=== PATIENT | male | born 1970 | race Caucasian/White ===

== ENCOUNTER → 2020-07-12 10:53 | Outpatient (CLI) | payer OTHER, SELFPAY ==
[2020-07-12 11:54] LABS: Alanine Aminotransferase 27 IU/L (<50); Albumin 4.7 g/dL (3.5-5.0); Albumin Globulin Ratio 1.6 (1.0-2.8); Alkaline Phosphatase 69 U/L (38-126); Aspartate Aminotransferase 26 IU/L (17-59); BUN Creatinine Ratio 20.3 (6-22); Bilirubin Total 0.4 mg/dL (0.2-1.3); Blood Urea Nitrogen 14 mg/dL (9-20); Calcium 9.2 mg/dL (8.4-10.2); Carbon Dioxide 31 mmol/L (22-32); Chloride 104 mmol/L (98-107); Cholesterol 142 mg/dL (140-199); Estimated Glomerular Filt Rate > 60.0 mL/min (>60); Glucose 102 mg/dL (70-100); HDL Cholesterol 40 mg/dL (40-60); HEMOLYSIS < 15 (0-50); LDL Cholesterol Calculated 78 mg/dL (<100); Potassium 4.5 mmol/L (3.4-5.1); Sodium 140 mmol/L (137-145); Total Protein 7.7 g/dL (6.3-8.2); Triglycerides 121 mg/dL (35-150)
== END ==
PROVIDERS: PCP Family Medicine; Referring Provider Family Medicine; Visit Provider Family Medicine
DX: E78.5 Hyperlipidemia, unspecified (principal); Z82.49 Family history of ischemic heart disease and other diseases of the circulatory system
CPT/HCPCS: 36415; 80053; 80061

== ENCOUNTER → 2020-09-30 09:30 | Outpatient (CLI) | payer OTHER, SELFPAY ==
[2020-09-30 10:21] LABS: COVID19 -Nasal RAPID Negative (Negative)
== END ==
PROVIDERS: PCP Family Medicine; Visit Provider Surgery
DX: Z20.822 Contact with and (suspected) exposure to COVID-19 (principal)
CPT/HCPCS: 87635; C9803

== ENCOUNTER 2020-10-01 06:31 | Day surgery (SDC) | payer OTHER, SELFPAY ==
[2020-10-01] VITALS (7 sets, daily range): BP systolic 112–132; BP diastolic 71–83; PULSE 63–74; RESP 12–17; TEMP 35.6–36.6; O2SAT 94–98; BMI 29.9
--- NOTE | 2020-10-01 | PATH_ITS ---
[facility] Accession Number: [id number] . 01 Material submitted: . back - UPPER BACK . 01 Clinical history: . MELANOMA UPPER BACK, SHORT STITCH SUPERIOR LONG STITCH LATERAL SDC . 01 Diagnosis: Upper Back, Excision: Residual atypical compound melanocytic proliferation, margins clear; final diagnosis pending outside expert consultation. Scar, consistent with prior biopsy site. [facility] 10/08/2020 1541 Local . 01 Comment: The residual dermal component seems to lack maturation, however, p16 expression is mosaic. Melan-A immunohistochemical stain performed highlights the residual lesion with positive staining. The nearest epidermal resection margin is located at approximately 9.5 mm from the lesion. . 01 Electronically signed: . Louann Bruno MD, Dermatopathologist NPI- [id number] . 01 Gross description: . The specimen is received in formalin, labeled melanoma upper back and consists of a 3.2 x 1.8 cm garcía skin ellipse excised to a depth of 3.1 cm. The specimen is oriented with a short suture designated superior and a long suture designated lateral. The skin surface displays a 0.5 x 0.5 cm garcía pink area. The specimen is inked as follows: superior lateral green, inferior black, and superior medial yellow. The specimen is serially sectioned from medial to lateral and entirely submitted. . A1: medial and lateral tips. A2-A9: central cross-sections. ([id number]) /MRV 10/08/20201942 Local . 01 Pathologist provided ICD-10: C43.9 . 01 CPT . 346851, A92561, I57258 Performed at: [address] [facility], [place], [place] [id number] MD Andreas Canela MD Phone: [phone]
[2020-10-01] MEDS: LACTATED RINGERS 1,000 ML 100 ML IV (07:05)
--- NOTE | 2020-10-01 07:36 | PM.PREOP ---
Pre-operative Note Interval Note History & Physical reviewed/Exam performed by Physician: Yes Changes to H&P: No
[2020-10-01] MEDS: CEFAZOLIN 2 GM/100 ML FROZ.PIGGY IV (07:52)
--- NOTE | 2020-10-01 08:14 | SUR.OPER ---
Prone on padded OR bed, head in foam head support, gel chest rolls, gel pad under knees, pillow under lower legs, toes free of pressure, arms secured on padded arm boards at <90 degrees abduction. Safety belt at thigh.
[2020-10-01] MEDS: BUPIVACAINE 0.25% (PF) VIAL 30 ML INJ (08:17)
--- NOTE | 2020-10-01 09:06 | PM.OP.1 ---
Operative Date/Time/Diagnoses Date of procedure: 10/01/20 Time of procedure: 09:06 Pre-op diagnosis: melanoma Post-op diagnosis: same Procedure & Clinicians Procedure: Wide local excision of melanoma from back Same procedure as scheduled: Yes Indications: shave biopsy of nevus demonstrates melanoma in situ the depth was uncertain here for wide local excision. Surgeon: Azael Mcnally Anesthesia Type: General Operative Notes Findings: 1 cm margins circumferentially, short stitch superior long stitch lateral Specimen(s): other (Melanoma) Procedure in detail: Patient was brought to the operating room and he was intubated and then placed prone appropriately padded. Bilateral lower extremity compression devices were applied. He received 2 g of Ancef prior to skin incision. He is prepped and draped in sterile fashion. Time-out was performed. 0.25% bupivacaine was infiltrated into the skin. There was a remaining less than 1 cm wound where the melanoma had been previously shaved on the upper back right of midline. 1 cm margins from the periphery of the lesion in all directions were marked. An elliptical incision was then made through the skin. The subcutaneous tissue was divided using electrocautery very. The lesion was then excised off of the fascia and passed off the field labeled melanoma. Short stitch superior long stitch lateral saldana the specimen. Hemostasis was achieved. The wound was then closed in layers using Vicryl suture the skin closed with interrupted nylon. A dressing with Xeroform Telfa and Tegaderm was then placed over the wound. Patient emerged from anesthesia was extubated and transferred to recovery room in stable condition. Complications: none Post-operative Condition: stable Disposition: same day surgery
== END 2020-10-01 09:40 | disposition home or self-care (01) ==
PROVIDERS: PCP Family Medicine; Referring Provider Surgery; Visit Provider Surgery
PROC: (CPT 11601; principal; 2020-10-01 07:45)
DX: C43.9 Malignant melanoma of skin, unspecified (principal); I10 Essential (primary) hypertension
CPT/HCPCS: 11601; 12031; J0690; J1100; J2250; J2405; J2704; J3010

== ENCOUNTER → 2020-12-24 07:25 | Outpatient (CLI) | payer OTHER, SELFPAY ==
--- NOTE | 2020-12-24 07:26 | DI.RAD.S_ITS ---
PROCEDURE: FL UPPER GI SERIES INDICATIONS: dysphagia COMPARISON: None. 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 No suspicious abdominal calcifications. Visualized solid organ contours appear normal. Bony structures appear unremarkable. Esophagus: Esophageal mucosa is normal on air-contrast views. On single-contrast views, there is decreased esophageal peristalsis. There is delayed esophageal clearance. No strictures, extrinsic mass effects, or diverticula. No hiatal hernia . Spontaneous gastroesophageal reflux to the lower 3rd of the esophagus. Stomach: The stomach is normally distensible, with normal rugal fold thickness. No mucosal masses or ulcers. Pylorus and duodenal bulb appear normal in morphology. Duodenal noted particularly is incidentally noted. IMPRESSION: Esophageal dysmotility. Spontaneous gastroesophageal reflux to the lower 3rd of the esophagus. Incidentally noted duodenal diverticulum. Dictated by: Mahamed Michael M.D. on 12/24/2020 at 13:25 Approved by: Mahamed Michael M.D. on 12/24/2020 at 13:27
== END ==
PROVIDERS: PCP Family Medicine; Referring Provider Registered Nurse; Visit Provider Registered Nurse
DX: R13.10 Dysphagia, unspecified (principal); K22.4 Dyskinesia of esophagus; K21.9 Gastro-esophageal reflux disease without esophagitis; K57.10 Diverticulosis of small intestine without perforation or abscess without bleeding
CPT/HCPCS: 74240

== ENCOUNTER → 2021-09-12 08:24 | Outpatient (CLI) | payer OTHER, SELFPAY ==
[2021-09-12 09:55] LABS: Hemoglobin A1C% w Est Avg Glu 5.3 % (4.0-6.0)
[2021-09-12 09:58] LABS: Alanine Aminotransferase 29 IU/L (<50); Albumin 4.5 g/dL (3.5-5.0); Albumin Globulin Ratio 1.6 (1.0-2.8); Alkaline Phosphatase 67 U/L (38-126); Aspartate Aminotransferase 25 IU/L (17-59); BUN Creatinine Ratio 20.2 (6-22); Bilirubin Total 0.9 mg/dL (0.2-1.3); Blood Urea Nitrogen 17 mg/dL (9-20); Calcium 9.4 mg/dL (8.4-10.2); Carbon Dioxide 25 mmol/L (22-32); Chloride 104 mmol/L (98-107); Estimated Glomerular Filt Rate > 60.0 mL/min (>60); Globulin 2.8 g/dL (1.7-4.1); Glucose 108 mg/dL (70-100); HEMOLYSIS < 15 (0-50); Potassium 4.6 mmol/L (3.4-5.1); Sodium 137 mmol/L (137-145); Total Protein 7.3 g/dL (6.3-8.2)
[2021-09-12 09:59] LABS: Add Manual Diff / Slide Review NO; Basophils Absolute Auto 0 /uL (0-100); Basophils Percent Auto 0.3 % (0-2); Eosinophils Absolute Auto 100 /uL (0-450); Eosinophils Percent Auto 1.6 % (2-4); Hematocrit 40.6 % (41-53); Hemoglobin 14.3 g/dL (13.5-17.5); Lymphocytes Absolute Auto 1700 /uL (1100-4500); Lymphocytes Percent Auto 26.3 % (25-40); Mean Corpuscular HGB Conc 35.3 % (30-36); Mean Corpuscular Hemoglobin 29.9 PG (26-34); Mean Corpuscular Volume 84.8 fL (80-100); Monocytes Absolute Auto 700 /uL (0-900); Monocytes Percent Auto 11.4 % (3-14); Neutrophils Absolute Auto 3800 /uL (1500-7000); Neutrophils Percent Auto 60.4 % (50-75); Platelet Count 226 X10^3/uL (150-400); Red Blood Cell Count 4.78 X10^6/uL (4.5-5.9); White Blood Cell Count 6.3 X10^3/uL (4.5-11.0)
== END ==
PROVIDERS: PCP Family Medicine; Referring Provider Family Medicine; Visit Provider Family Medicine
DX: Z00.00 Encounter for general adult medical examination without abnormal findings (principal)
CPT/HCPCS: 36415; 80053; 83036; 85025

== ENCOUNTER → 2022-02-02 16:17 | Outpatient (CLI) | payer OTHER, SELFPAY ==
--- NOTE | 2022-02-02 16:18 | DI.RAD.S_ITS ---
PROCEDURE: XR FOOT LT MIN 3V INDICATIONS: eval L foot pain x 1.5 months, no trauma TECHNIQUE: 3 views of the foot were acquired. COMPARISON: None. FINDINGS: Bones: No fractures or dislocations. Mild interphalangeal joint osteoarthritic changes are seen with joint space narrowing and subchondral sclerosis. No suspicious bony lesions. Well-defined plantar calcaneal enthesophyte is seen. Soft tissues: No tibiotalar joint effusion. Achilles tendon appears normal. IMPRESSION: Mild forefoot joint osteoarthritis. No fracture or dislocation. Well-defined calcaneal enthesophyte. Dictated by: Genaro Castellanos M.D. on 02/02/2022 at 16:48 Approved by: Genaro Castellanos M.D. on 02/02/2022 at 16:52
== END ==
PROVIDERS: PCP Family Medicine; Referring Provider Registered Nurse Diabetes Educator; Visit Provider Registered Nurse Diabetes Educator
DX: M19.072 Primary osteoarthritis, left ankle and foot (principal); M77.32 Calcaneal spur, left foot; M79.672 Pain in left foot
CPT/HCPCS: 73630

== ENCOUNTER → 2022-07-03 10:30 | Outpatient (CLI) | payer BC, SELFPAY ==
[2022-07-03 12:11] LABS: Add Manual Diff / Slide Review NO; Basophils Absolute Auto 0 /uL (0-100); Basophils Percent Auto 0.6 % (0-2); Eosinophils Absolute Auto 100 /uL (0-450); Eosinophils Percent Auto 1.7 % (2-4); Hematocrit 42.2 % (41-53); Hemoglobin 14.9 g/dL (13.5-17.5); Lymphocytes Absolute Auto 1600 /uL (1100-4500); Lymphocytes Percent Auto 25.3 % (25-40); Mean Corpuscular HGB Conc 35.4 % (30-36); Mean Corpuscular Volume 84.8 fL (80-100); Monocytes Absolute Auto 600 /uL (0-900); Monocytes Percent Auto 9.2 % (3-14); Neutrophils Absolute Auto 4100 /uL (1500-7000); Neutrophils Percent Auto 63.2 % (50-75); Platelet Count 238 X10^3/uL (150-400); Red Blood Cell Count 4.98 X10^6/uL (4.5-5.9); Red Cell Distribution Width 12.8 % (11.6-14.8); White Blood Cell Count 6.5 X10^3/uL (4.5-11.0)
[2022-07-03 12:19] LABS: Alanine Aminotransferase 34 IU/L (<50); Albumin 4.8 g/dL (3.5-5.0); Albumin Globulin Ratio 1.5 (1.0-2.8); Alkaline Phosphatase 79 U/L (38-126); Aspartate Aminotransferase 26 IU/L (17-59); BUN Creatinine Ratio 19.2 (6-22); Bilirubin Total 0.7 mg/dL (0.2-1.3); Blood Urea Nitrogen 14 mg/dL (9-20); Calcium 9.3 mg/dL (8.4-10.2); Carbon Dioxide 28 mmol/L (22-32); Chloride 97 mmol/L (98-107); Cholesterol 181 mg/dL (140-199); Estimated Glomerular Filt Rate > 60 mL/min (>60); Globulin 3.1 g/dL (1.7-4.1); Glucose 95 mg/dL (70-100); HDL Cholesterol 51 mg/dL (40-60); HEMOLYSIS < 15 (0-50); LDL Cholesterol Calculated 93 mg/dL (<100); Potassium 4.6 mmol/L (3.4-5.1); Sodium 138 mmol/L (137-145); Total Protein 7.9 g/dL (6.3-8.2); Triglycerides 183 mg/dL (35-150)
[2022-07-03 12:51] LABS: Prostate Specific Antigen 0.736 ng/mL (0.10-4.00)
== END ==
PROVIDERS: PCP Family Medicine; Referring Provider Family Medicine; Visit Provider Family Medicine
DX: C43.9 Malignant melanoma of skin, unspecified (principal); E78.5 Hyperlipidemia, unspecified; I10 Essential (primary) hypertension; Z00.00 Encounter for general adult medical examination without abnormal findings
CPT/HCPCS: 36415; 80053; 80061; 84153; 85025

== ENCOUNTER 2023-02-21 10:59 | Emergency (ER) | payer BC, SELFPAY ==
[2023-02-21 11:04] VITALS: PULSE 89; O2SAT 97
[2023-02-21 11:13] VITALS: BP 137/82; PULSE 89; RESP 16; TEMP 36.7; O2SAT 97; BMI 30.4
--- NOTE | 2023-02-21 11:13 | ED.GENADULT ---
HPI - General Adult General Chief complaint: Abdominal Pain Stated complaint: STOMACH CRAMPS/FEVER Time Seen by Provider: 02/21/23 11:01 History of Present Illness HPI narrative: 52yoM with PMH HTN presents from home by private vehicle for generalized abdominal cramping and cold sweats. Symptoms began in the middle of the night last night, improved with Tylenol. Patient states that he had something similar happen to him 3 weeks ago when he was traveling in [place]. At that time patient attributed it to eating strange foods such as raw horse meat. He experience symptoms for 6 days and they resolved. Reports colonoscopy 1 year ago, there were polyps that were removed and patient was told to return in 3 years for another colonoscopy. Denies nausea or vomiting. Related Data Previous Rx's Medication Instructions Recorded lisinopril 20 mg tablet 20 mg PO BEDTIME #90 tabs 07/14/22 lisinopril 20 1 tab PO DAILY #90 tabs 07/14/22 mg-hydrochlorothiazide 12.5 mg tablet simvastatin 20 mg tablet See Rx Instructions .Route 07/14/22 .COMPLEX #90 tabs dicyclomine 20 mg tablet 20 mg PO TID #30 tabs 02/21/23 Allergies Allergy/AdvReac Type Severity Reaction Status Date / Time No Known Drug Allergies Allergy Verified 07/03/22 09:33 Review of Systems Review of Systems Narrative: CONSTITUTIONAL-reports: Fever, subjective, chills Denies: fatigue HEENT- Denies: sore throat, nosebleed, vision changes RESPIRATORY- Denies: shortness of breath, cough, wheezing CARDIAC- Denies: chest pain, edema, orthopnea GI-reports: Abdominal cramping Denies: nausea, vomiting, constipation, diarrhea - Denies: frequency, dysuria, hematuria, flank pain MSK- Denies: extremity pain, extremity swelling, joint pain, joint swelling SKIN- Denies: rash, itching, burn, swelling NEUROLOGICAL- Denies: headache, numbness, weakness, dizziness PSYCHIATRIC- Denies: anxiety, depression, suicidal ideation, homicidal ideation Patient History Medical History Dysphagia Family history of [place] (myocardial infarction) Hyperlipidemia Hypertension Melanoma in situ Nevus Well adult exam Surgical History H/O hernia repair Family History Father Hypertension Social History marital status: household members: spouse occupational status: employed Smoking Status: Never smoker alcohol intake: never substance use type: does not use Smoking Status: Never smoker Substance Use Type: does not use Exam Initial Vital Signs Initial Vital Signs: Vital Signs Pulse Rate 89 02/21/23 11:04 Pulse Oximetry 97 02/21/23 11:04 Const: Well-nourished, Well-developed, appears stated age Eyes: PERRL, EOMI, conjunctiva normal ENT: Atraumatic, dentition normal, mucous membranes moist Cardiac: regular rate, regular rhythm RESP: unlabored, clear bilaterally, no wheezing GI: Atraumatic, soft, nontender, nondistended, no rebound, no guarding MSK: Atraumatic, full range of motion, pulses equal Skin: Warm, Dry, intact, no rashes Neuro: AO x3, CN II-XII grossly intact, moves all extremities Psych: affect normal, mood normal, not suicidal, not homicidal Course Course Course Narrative: Well-appearing patient with abdominal cramping, chills, subjective fever. Patient is currently afebrile, however he did take Tylenol several hours ago. Abdomen is soft and there is absolutely no reproducible tenderness to light or deep palpation, negative Barker's sign. Will obtain laboratory work, at this time no indication for CT imaging. Orders Ordered: Discontinued Medications Sodium Chloride (Normal Saline 0.9%) 500 mls @ 1,000 mls/hr IV BOLUS ONE Stop: 02/21/23 11:39 Last Infusion: 02/21/23 12:27 Dose: 0 mls/hr Documented By: Infusion: 02/21/23 11:43 Dose: 1,000 mls/hr Documented By: Infusion: 02/21/23 11:22 Dose: 0 mls/hr Documented By: Admin: 02/21/23 11:22 Dose: 1,000 mls/hr Documented By: BS Reevaluation(s) Reevaluation #1: Laboratory work is significant for mild leukocytosis of uncertain significance. CMP is significant for mild increase in bilirubin, however other liver enzymes are within normal. Repeat abdominal exam is soft, again there is no reproducible tenderness to either light or deep palpation. Patient states he feels better after receiving IV fluids and states that he thinks he may have a recurrence of whatever affected him in [place]. I discussed the results of all labs with the patient, I do not know the cause for his symptoms at this time. I explained that he did have mild leukocytosis, but no obvious source. Patient will be discharged on Bentyl to see if it helps with the cramping. I recommended that patient return for repeat evaluation if he does not experience improvement in the next 24-48 hours. ED return precautions discussed at bedside. Patient expressed understanding of the plan and is in agreement at this time. All questions answered at the time of discharge. Vital Signs Vital signs: Vital Signs - 8 hr 02/21/23 11:13 02/21/23 11:04 02/21/23 11:30 Temperature 98.1 F Pulse Rate 89 89 77 Respiratory Rate 16 Blood Pressure 137/82 Pulse Oximetry 97 97 97 Oxygen Delivery Method Room Air 02/21/23 12:00 02/21/23 12:50 Temperature 98.4 F Pulse Rate 78 Respiratory Rate Blood Pressure Pulse Oximetry 97 Oxygen Delivery Method Room Air Medical Decision Making Lab Data 02/21/23 11:35 02/21/23 11:35 Labs: Lab Results 02/21/23 02/21/23 02/21/23 Range/Units 11:25 11:35 11:35 WBC 14.3 H (4.5-11.0) X10^3/uL RBC 4.73 (4.5-5.9) X10^6/uL Hgb 13.7 (13.5-17.5) g/dL Hct 39.7 L (41-53) % MCV 83.9 (80-100) fL MCH 29.0 (26-34) PG MCHC 34.6 (30-36) % RDW 12.7 (11.6-14.8) % Plt Count 250 (150-400) X10^3/uL Neut % (Auto) 90.6 H (50-75) % Lymph % (Auto) 2.8 L (25-40) % [place] % (Auto) 6.0 (3-14) % Eos % (Auto) 0.1 L (2-4) % Baso % (Auto) 0.5 (0-2) % Neut # (Auto) 18277 H (6994-0425) /uL Lymph # (Auto) 400 L (0285-6139) /uL [place] # (Auto) 900 (0-900) /uL Eos # (Auto) 0 (0-450) /uL Baso # (Auto) 100 (0-100) /uL Sodium 134 L (137-145) mmol/L Potassium 4.2 (3.4-5.1) mmol/L Chloride 101 (98-107) mmol/L Carbon Dioxide 25 (22-32) mmol/L BUN 15 (9-20) mg/dL Creatinine 0.77 (0.66-1.25) mg/dL Estimated GFR > 60 (>60) mL/min BUN/Creatinine Ratio 19.5 (6-22) Glucose 115 H (70-100) mg/dL Calcium 9.1 (8.4-10.2) mg/dL Total Bilirubin 1.4 H (0.2-1.3) mg/dL AST 26 (17-59) IU/L ALT 33 (<50) IU/L Alkaline Phosphatase 99 (38-126) U/L Total Protein 7.5 (6.3-8.2) g/dL Albumin 4.2 (3.5-5.0) g/dL Globulin 3.3 (1.7-4.1) g/dL Albumin/Globulin Ratio 1.3 (1.0-2.8) Lipase 80 (23-300) U/L Urine Color Urine Appearance Urine pH (4.5-8.0) Ur Specific Mccarley (1.000-1.035) Urine Protein (Negative) Urine Glucose (UA) (Negative) g/dL Urine Ketones (NEGATIVE) Urine Occult Blood (Negative) Urine Nitrate (Negative) Urine Bilirubin (NEGATIVE) Urine Urobilinogen (0.2) E.U./dL Ur Leukocyte Esterase (NEGATIVE) Urine RBC (0-5/HPF) Urine WBC (0-5/HPF) Ur Squamous Epith Cells (0-5/HPF) Urine Bacteria (None) Urine Mucus (Negative) Ur Culture Indicated? Chlamy pneumoniae PCR Not detected (Not Detect) Adenovirus (PCR) Not detected (Not Detect) B. pertussis DNA (PCR) Not detected (Not Detecte) B.parapertussis DNA PCR Not detected (Not Detecte) Coronavirus OC43 (PCR) Not detected (Not Detect) Coronavirus HKU1 (PCR) Not detected (Not Detect) Coronavirus 229E (PCR) Not detected (Not Detect) SARS-CoV-2 (PCR) Not detected (Not Detecte) Coronavirus NL63 (PCR) Not detected (Not Detect) Human Metapneumovir PCR Not detected (Not Detect) Influenza Type A (PCR) Not detected (Not Detect) Influenza Type B (PCR) Not detected (Not Detect) M. pneumoniae (PCR) Not detected (Not Detect) Parainfluenza 1 (PCR) Not detected (Not Detect) Parainfluenza 2 (PCR) Not detected (Not Detect) Parainfluenza 3 (PCR) Not detected (Not Detect) Parainfluenza 4 (PCR) Not detected (Not Detect) RSV (PCR) Not detected (Not Detect) Entero/Rhino (PCR) Not detected (Not Detect) 02/21/23 Range/Units 12:15 WBC (4.5-11.0) X10^3/uL RBC (4.5-5.9) X10^6/uL Hgb (13.5-17.5) g/dL Hct (41-53) % MCV (80-100) fL MCH (26-34) PG MCHC (30-36) % RDW (11.6-14.8) % Plt Count (150-400) X10^3/uL Neut % (Auto) (50-75) % Lymph % (Auto) (25-40) % [place] % (Auto) (3-14) % Eos % (Auto) (2-4) % Baso % (Auto) (0-2) % Neut # (Auto) (3120-6715) /uL Lymph # (Auto) (9480-4447) /uL [place] # (Auto) (0-900) /uL Eos # (Auto) (0-450) /uL Baso # (Auto) (0-100) /uL Sodium (137-145) mmol/L Potassium (3.4-5.1) mmol/L Chloride (98-107) mmol/L Carbon Dioxide (22-32) mmol/L BUN (9-20) mg/dL Creatinine (0.66-1.25) mg/dL Estimated GFR (>60) mL/min BUN/Creatinine Ratio (6-22) Glucose (70-100) mg/dL Calcium (8.4-10.2) mg/dL Total Bilirubin (0.2-1.3) mg/dL AST (17-59) IU/L ALT (<50) IU/L Alkaline Phosphatase (38-126) U/L Total Protein (6.3-8.2) g/dL Albumin (3.5-5.0) g/dL Globulin (1.7-4.1) g/dL Albumin/Globulin Ratio (1.0-2.8) Lipase (23-300) U/L Urine Color Yellow Urine Appearance Clear Urine pH 5.5 (4.5-8.0) Ur Specific M[place]arley 1.020 (1.000-1.035) Urine Protein Negative (Negative) Urine Glucose (UA) Negative (Negative) g/dL Urine Ketones Negative (NEGATIVE) Urine Occult Blood Negative (Negative) Urine Nitrate Negative (Negative) Urine Bilirubin Negative (NEGATIVE) Urine Urobilinogen 1.0 (0.2) E.U./dL Ur Leukocyte Esterase Negative (NEGATIVE) Urine RBC 0-1/hpf (0-5/HPF) Urine WBC 0-1/hpf (0-5/HPF) Ur Squamous Epith Cells 0-1 /hpf (0-5/HPF) Urine Bacteria None seen (None) Urine Mucus 1+ H (Negative) Ur Culture Indicated? Cult not indicated Chlamy pneumoniae PCR (Not Detect) Adenovirus (PCR) (Not Detect) B. pertussis DNA (PCR) (Not Detecte) B.parapertussis DNA PCR (Not Detecte) Coronavirus OC43 (PCR) (Not Detect) Coronavirus HKU1 (PCR) (Not Detect) Coronavirus 229E (PCR) (Not Detect) SARS-CoV-2 (PCR) (Not Detecte) Coronavirus NL63 (PCR) (Not Detect) Human Metapneumovir PCR (Not Detect) Influenza Type A (PCR) (Not Detect) Influenza Type B (PCR) (Not Detect) M. pneumoniae (PCR) (Not Detect) Parainfluenza 1 (PCR) (Not Detect) Parainfluenza 2 (PCR) (Not Detect) Parainfluenza 3 (PCR) (Not Detect) Parainfluenza 4 (PCR) (Not Detect) RSV (PCR) (Not Detect) Entero/Rhino (PCR) (Not Detect) Discharge Plan Departure Patient Disposition: Home Clinical Impression: Abdominal cramping Instructions: DI for Dyspepsia Prescriptions: New dicyclomine 20 mg tablet 20 mg PO TID Qty: 30 0RF No Action lisinopril 20 mg tablet 20 mg PO BEDTIME Qty: 90 3RF lisinopril-hydrochlorothiazide 20-12.5 mg tablet 1 tab PO DAILY Qty: 90 3RF simvastatin 20 mg tablet See Rx Instructions .ROUTE .COMPLEX Qty: 90 3RF Dose Instruction: TAKE 1 TABLET BY MOUTH DAILY Rx Instructions: TAKE 1 TABLET BY MOUTH DAILY Referrals: Kavin Benítez, [Primary Care Provider] - Stand Alone Forms: Patient Portal/API
[2023-02-21] MEDS: SODIUM CHLORIDE 0.9% 500 ML 1000 ML IV (11:22)
[2023-02-21 11:30] VITALS: PULSE 77; O2SAT 97
[2023-02-21 11:48] LABS: Add Manual Diff / Slide Review NO; Basophils Absolute Auto 100 /uL (0-100); Basophils Percent Auto 0.5 % (0-2); Eosinophils Absolute Auto 0 /uL (0-450); Eosinophils Percent Auto 0.1 % (2-4); Hematocrit 39.7 % (41-53); Hemoglobin 13.7 g/dL (13.5-17.5); Lymphocytes Absolute Auto 400 /uL (1100-4500); Lymphocytes Percent Auto 2.8 % (25-40); Mean Corpuscular HGB Conc 34.6 % (30-36); Mean Corpuscular Volume 83.9 fL (80-100); Monocytes Absolute Auto 900 /uL (0-900); Neutrophils Absolute Auto 13000 /uL (1500-7000); Neutrophils Percent Auto 90.6 % (50-75); Platelet Count 250 X10^3/uL (150-400); Red Blood Cell Count 4.73 X10^6/uL (4.5-5.9); Red Cell Distribution Width 12.7 % (11.6-14.8); White Blood Cell Count 14.3 X10^3/uL (4.5-11.0)
[2023-02-21 12:00] VITALS: PULSE 78; O2SAT 97
[2023-02-21 12:11] LABS: Alanine Aminotransferase 33 IU/L (<50); Albumin 4.2 g/dL (3.5-5.0); Albumin Globulin Ratio 1.3 (1.0-2.8); Alkaline Phosphatase 99 U/L (38-126); Aspartate Aminotransferase 26 IU/L (17-59); BUN Creatinine Ratio 19.5 (6-22); Bilirubin Total 1.4 mg/dL (0.2-1.3); Blood Urea Nitrogen 15 mg/dL (9-20); Calcium 9.1 mg/dL (8.4-10.2); Carbon Dioxide 25 mmol/L (22-32); Chloride 101 mmol/L (98-107); Estimated Glomerular Filt Rate > 60 mL/min (>60); Globulin 3.3 g/dL (1.7-4.1); Glucose 115 mg/dL (70-100); HEMOLYSIS < 15 (0-50); Lipase 80 U/L (23-300); Potassium 4.2 mmol/L (3.4-5.1); Sodium 134 mmol/L (137-145); Total Protein 7.5 g/dL (6.3-8.2)
[2023-02-21 12:19] LABS: Adenovirus Not Detected (Not Detect); B. parapertussis Not Detected (Not Detecte); Bordetella pertussis Not Detected (Not Detecte); Chlamydophila pneumoniae Not Detected (Not Detect); Coronavirus 229E Not Detected (Not Detect); Coronavirus HKU1 Not Detected (Not Detect); Coronavirus NL 63 Not Detected (Not Detect); Coronavirus OC43 Not Detected (Not Detect); Human Metapneumovirus Not Detected (Not Detect); Human Rhinovirus/Enterovirus Not Detected (Not Detect); Influenza A Not Detected (Not Detect); Influenza B Not Detected (Not Detect); Mycoplasma pneumoniae Not Detected (Not Detect); Parainfluenza Virus 1 Not Detected (Not Detect); Parainfluenza Virus 2 Not Detected (Not Detect); Parainfluenza Virus 3 Not Detected (Not Detect); Parainfluenza Virus 4 Not Detected (Not Detect); Respiratory Syncytial Virus Not Detected (Not Detect); SARS- CoV-2 Not Detected (Not Detecte)
[2023-02-21 12:24] LABS: Appearance Urine UA CLEAR; Bilirubin Urine UA NEGATIVE (NEGATIVE); Color Urine UA YELLOW; Glucose Urine UA NEGATIVE (Negative); Ketones Urine UA NEGATIVE (NEGATIVE); Leukocyte Esterase Urine UA NEGATIVE (NEGATIVE); Nitrite Urine UA NEGATIVE (Negative); Occult Blood Urine UA NEGATIVE (Negative); Protein Urine UA NEGATIVE (Negative); pH Urine UA 5.5 (4.5-8.0)
[2023-02-21 12:50] VITALS: TEMP 36.9
[2023-02-21 12:52] LABS: Bacteria Urine None Seen; Culture Indicated Urine Cult Not Indicated; Mucus Urine 1+ (Negative); RBC Urine 0-1/HPF (0-5/HPF); Squamous Epithelial Cell Urine 0-1 /HPF (0-5/HPF); WBC Urine 0-1/HPF (0-5/HPF)
== END 2023-02-21 13:12 | disposition home or self-care (01) ==
PROVIDERS: Emergency Provider Emergency Medicine; PCP Family Medicine
DX: R10.84 Generalized abdominal pain (principal)
CPT/HCPCS: 80053; 81001; 83690; 85025; 87633; 99283; 99284

== ENCOUNTER 2023-02-26 03:12 | Observation (INO) | payer BC, SELFPAY ==
[2023-02-26] VITALS (17 sets, daily range): BP systolic 122–147; BP diastolic 67–97; PULSE 61–91; RESP 12–20; TEMP 36.4–37.3; O2SAT 93–99; BMI 29.8
--- NOTE | 2023-02-26 | PATH_ITS ---
[facility] Accession Number: [id number] No. of containers..01 Tissue . 01 Material submitted: . gallbladder - GALLBLADDER . 01 Diagnosis: Gallbladder, Cholecystectomy: Acute cholecystitis with ulceration and associated reactive/regenerative changes. Negative for significant atypia and malignancy. MRV 03/05/2023 1240 Local . 01 Electronically signed: . Servando Campuzano MD, Pathologist NPI- [id number] . 01 Gross description: . Received in formalin, labeled with the patient's name and gallbladder, are two ragged irregular fragments of pink-garcía tissue consistent with fragmented gallbladder, which are 8.3 x 3.4 x 2.5 cm. The presumed serosa is ragged and irregular, focally smooth and glistening, and focally covered with fat. The mucosa is diffusely irregular and ragged, focally pink-garcía. The wall thickness ranges from 0.3 cm to 1.2 cm. There is one identifiable transmural defect or possible cystic duct. No infundibulum or definitive cystic duct margin is identified. The defect is inked orange. Civil Rights Representative sections are submitted in cassettes A1-A3. ([id number]) /FRR 02/27/2023 1843 Local . 01 Pathologist provided ICD-10: K81.1 . 01 CPT . 050638 Specimen Comment: A courtesy copy of this report has been sent to [phone] Performed at: [address] [id number] MD Andreas Canela MD Phone: [phone]
--- NOTE | 2023-02-26 03:33 | DI.CT.S_ITS ---
PROCEDURE: CT ABDOMEN PELVIS W CON INDICATIONS: Generalized abdominal pain TECHNIQUE: After the administration of oral and IV contrast, axial sections were acquired from the lung bases to the pubic symphysis. Coronal and sagittal reformats were performed. For radiation dose reduction, the following was used: automated exposure control, adjustment of mA and/or kV according to patient size. COMPARISON: None. FINDINGS: Image quality: Excellent. Lung bases: Unremarkable. Heart: No significant findings. ABDOMEN: Liver: Mild hypodensity adjacent to the gallbladder. Gallbladder: Gallbladder wall thickening with irregular appearance and pericholecystic stranding. Findings consistent with cholecystitis. No calcified gallstones. Biliary ducts: Within normal limits. Pancreas: Enhances uniformly. No ductal dilatation. Spleen: No splenomegaly. Adrenal Glands: No nodule. Kidneys and Ureters: No hydronephrosis. Left kidney superior pole nonobstructing calculus measuring 0.5 cm. Small benign left renal cyst measuring 1.3 cm. Stomach and Bowel: Stomach is within normal limits. Small duodenal diverticulum. No small bowel obstruction. A few scattered colonic diverticuli. Sigmoid colon is somewhat redundant. Normal appendix. Peritoneum: No abnormal intraperitoneal fluid. No free air. Ventral Wall: Tiny umbilical hernia. Abdominal Nodes: No retroperitoneal or mesenteric adenopathy by size criteria. Vessels: Aorta and inferior vena cava are normal in size. PELVIS: Pelvic Organs: Prostatomegaly. Bladder: No stone. Pelvic Nodes: No enlarged lymph nodes. Miscellaneous: No inguinal hernias are seen. Prior left inguinal hernia repair with mesh. Bones: No suspicious lesion. IMPRESSION: 1. Marked gallbladder wall thickening with surrounding inflammatory change consistent with cholecystitis. Recommend surgical consultation. Further evaluation with gallbladder ultrasound may be helpful. 2. Small nonobstructing left kidney stone. This report is concordant with the overnight preliminary interpretation. Dictated by: Jacek Carballo M.D. on 02/26/2023 at 8:06 Approved by: Jacek Carballo M.D. on 02/26/2023 at 8:15
--- NOTE | 2023-02-26 03:33 | ED.GENADULT ---
HPI - General Adult General Chief complaint: Abdominal Pain Stated complaint: OBSTRUCTION GI PAIN T-7 Time Seen by Provider: 02/26/23 03:16 Source: patient Mode of arrival: Ambulatory Limitations: no limitations History of Present Illness HPI narrative: 52-year-old male who is here for evaluation of continued GI symptoms. He states that his symptoms started several weeks ago when he was on vacation. He thought that it was potentially just something that he ate. He has been having abnormal stools since then with diarrhea. No fevers. He was here in the emergency department a couple days ago. Had labs drawn. Had a leukocytosis. [place] better after fluids and medications. No radiologic studies were performed. He states that he is back with continued symptoms. His abdominal pain does seem to come go there are periods of time where he was relatively asymptomatic. He denies any nausea or vomiting. Has subjective fevers. Related Data Previous Rx's Medication Instructions Recorded lisinopril 20 mg tablet 20 mg PO BEDTIME #90 tabs 07/14/22 lisinopril 20 1 tab PO DAILY #90 tabs 07/14/22 mg-hydrochlorothiazide 12.5 mg tablet simvastatin 20 mg tablet See Rx Instructions .Route 07/14/22 .COMPLEX #90 tabs dicyclomine 20 mg tablet 20 mg PO TID #30 tabs 02/21/23 Allergies Allergy/AdvReac Type Severity Reaction Status Date / Time No Known Drug Allergies Allergy Verified 07/03/22 09:33 Review of Systems Constitutional Constitutional: Reports system reviewed and no additional complaints, except as documented Cardiovascular Cardiovascular: Reports system reviewed and no additional complaints, except as documented Respiratory Respiratory: Reports system reviewed and no additional complaints, except as documented Gastrointestinal Gastrointestinal: Reports system reviewed and no additional complaints, except as documented Integumentary/Breasts Skin/Breast: Reports system reviewed and no additional complaints, except as documented Neurologic Neurologic: Reports system reviewed and no additional complaints, except as documented Hematologic/Lymphatic On Anticoagulants: No Patient History Medical History Dysphagia Family history of [place] (myocardial infarction) Hyperlipidemia Hypertension Melanoma in situ Nevus Well adult exam Surgical History H/O hernia repair Family History Father Hypertension Social History marital status: household members: spouse occupational status: employed Smoking Status: Never smoker alcohol intake: never substance use type: does not use Smoking Status: Never smoker alcohol intake frequency: a few times a week Substance Use Type: does not use Exam Initial Vital Signs Initial Vital Signs: Vital Signs Temperature 97.7 F 02/26/23 03:26 Pulse Rate 73 02/26/23 03:26 Respiratory Rate 18 02/26/23 03:26 Blood Pressure 124/70 02/26/23 03:26 Pulse Oximetry 99 02/26/23 03:26 Oxygen Delivery Method Room Air 02/26/23 03:26 Const General: diaphoretic HENMT Head: normal to inspection and normocephalic Resp Effort & Inspection: normal respiratory effort Auscultation: clear to auscultation bilaterally Cardio Rate: regular rate Rhythm: regular rhythm GI Inspection: normal to inspection and non-distended Palpation: soft and No tender Skin General: no rashes or lesions noted Neuro General: patient alert, patient awake and moves all extremities Extrem General: normal to inspection and capillary refill normal Course Orders Ordered: ED Orders 02/26/23 03:33 CT abdomen pelvis w con Stat GI Panel (Film Array) Stat 02/26/23 03:35 Complete Blood Count AUTO DIFF Stat Comprehensive Metabolic Panel Stat Lipase Stat Sodium Chloride (Normal Saline 0.9%) 1,000 mls @ 125 mls/hr IV CONT ALEC Morphine Sulfate (Morphine 2 Mg/Ml Inj) 4 mg IV Q4HR PRN PRN Reason: Pain, Moderate (4-6) Ondansetron HCl (Ondansetron 4 Mg/2 Ml Inj) 4 mg IV Q4HR PRN PRN Reason: Nausea And Vomiting Discontinued Medications Sodium Chloride (Normal Saline 0.9%) 1,000 mls @ 1,000 mls/hr IV BOLUS ONE Stop: 02/26/23 04:32 Last Admin: 02/26/23 03:43 Dose: 1,000 mls/hr Documented By: WU Piperacillin Sod/Tazobactam (Sod 4.5 gm/ Sodium Chloride) 100 mls @ 200 mls/hr IV NOW ONE Stop: 02/26/23 04:46 Vital Signs Vital signs: Vital Signs - 8 hr 02/26/23 03:26 Temperature 97.7 F Pulse Rate 73 Respiratory Rate 18 Blood Pressure 124/70 Pulse Oximetry 99 Oxygen Delivery Method Room Air Medical Decision Making Medical Records Medical records reviewed: Yes I reviewed the patient's medical records. Lab Data Lab results reviewed: Yes I reviewed the patient's lab results. 02/26/23 03:35 02/26/23 03:35 Labs: Lab Results 02/26/23 02/26/23 Range/Units 03:35 03:35 WBC 9.5 (4.5-11.0) X10^3/uL RBC 4.40 L (4.5-5.9) X10^6/uL Hgb 12.8 L (13.5-17.5) g/dL Hct 36.8 L (41-53) % MCV 83.8 (80-100) fL MCH 29.1 (26-34) PG MCHC 34.7 (30-36) % RDW 12.7 (11.6-14.8) % Plt Count 242 (150-400) X10^3/uL Neut % (Auto) 57.4 (50-75) % Lymph % (Auto) 26.9 (25-40) % [place] % (Auto) 13.4 (3-14) % Eos % (Auto) 2.0 (2-4) % Baso % (Auto) 0.3 (0-2) % Neut # (Auto) 5500 (4116-6844) /uL Lymph # (Auto) 2600 (5166-8839) /uL [place] # (Auto) 1300 H (0-900) /uL Eos # (Auto) 200 (0-450) /uL Baso # (Auto) 0 (0-100) /uL Sodium 135 L (137-145) mmol/L Potassium 4.0 (3.4-5.1) mmol/L Chloride 100 (98-107) mmol/L Carbon Dioxide 30 (22-32) mmol/L BUN 9 (9-20) mg/dL Creatinine 0.81 (0.66-1.25) mg/dL Estimated GFR > 60 (>60) mL/min BUN/Creatinine Ratio 11.1 (6-22) Glucose 142 H (70-100) mg/dL Calcium 8.8 (8.4-10.2) mg/dL Total Bilirubin 0.8 (0.2-1.3) mg/dL AST 97 H (17-59) IU/L ALT 76 H (<50) IU/L Alkaline Phosphatase 167 H D (38-126) U/L Total Protein 7.9 (6.3-8.2) g/dL Albumin 4.1 (3.5-5.0) g/dL Globulin 3.8 (1.7-4.1) g/dL Albumin/Globulin Ratio 1.1 (1.0-2.8) Lipase 96 (23-300) U/L Imaging Data CT scan - abdomen/pelvis: Radiologist's Impression: Abnormal gallbladder consistent with cholecystitis. No gallbladder perforation is identified. No distinct stone or bile duct obstruction MDM Narrative Medical decision making narrative: Patient presents today with continued symptoms that are very similar to what he had approximately 1 week ago and would originally started several weeks ago while he was on vacation. He is afebrile. His leukocytosis is actually improved from his last visit. His bilirubin is improved however his LFTs and alk phos are now elevated today. Lipase is unremarkable. CT scan shows an abnormal gallbladder consistent with acute cholecystitis. This does correspond to his symptoms today. I did discuss the case with Dr. Diehl who is on-call for General surgery. Plan will be is to start the patient on antibiotics and been to the hospital for further evaluation and treatment. I did discuss the findings of the CT scan with the patient. We did discuss the need for admission. He expressed understanding and agreement as well. Discharge Plan Departure Patient Disposition: Admitted As Inpatient Clinical Impression: Acute cholecystitis Admit Date/Time: 02/26/23 04:45 Admit Provider: Clair Diehl
[2023-02-26] MEDS: SODIUM CHLORIDE 0.9% 1,000 ML 1000 ML IV (03:43)
[2023-02-26 03:47] LABS: Add Manual Diff / Slide Review NO; Basophils Absolute Auto 0 /uL (0-100); Basophils Percent Auto 0.3 % (0-2); Eosinophils Absolute Auto 200 /uL (0-450); Hematocrit 36.8 % (41-53); Hemoglobin 12.8 g/dL (13.5-17.5); Lymphocytes Absolute Auto 2600 /uL (1100-4500); Lymphocytes Percent Auto 26.9 % (25-40); Mean Corpuscular HGB Conc 34.7 % (30-36); Mean Corpuscular Hemoglobin 29.1 PG (26-34); Mean Corpuscular Volume 83.8 fL (80-100); Monocytes Absolute Auto 1300 /uL (0-900); Monocytes Percent Auto 13.4 % (3-14); Neutrophils Absolute Auto 5500 /uL (1500-7000); Neutrophils Percent Auto 57.4 % (50-75); Platelet Count 242 X10^3/uL (150-400); Red Cell Distribution Width 12.7 % (11.6-14.8); White Blood Cell Count 9.5 X10^3/uL (4.5-11.0)
[2023-02-26 03:58] LABS: Alanine Aminotransferase 76 IU/L (<50); Albumin 4.1 g/dL (3.5-5.0); Albumin Globulin Ratio 1.1 (1.0-2.8); Alkaline Phosphatase 167 U/L (38-126); Aspartate Aminotransferase 97 IU/L (17-59); BUN Creatinine Ratio 11.1 (6-22); Bilirubin Total 0.8 mg/dL (0.2-1.3); Blood Urea Nitrogen 9 mg/dL (9-20); Calcium 8.8 mg/dL (8.4-10.2); Carbon Dioxide 30 mmol/L (22-32); Chloride 100 mmol/L (98-107); Estimated Glomerular Filt Rate > 60 mL/min (>60); Globulin 3.8 g/dL (1.7-4.1); Glucose 142 mg/dL (70-100); HEMOLYSIS < 15 (0-50); Lipase 96 U/L (23-300); Sodium 135 mmol/L (137-145); Total Protein 7.9 g/dL (6.3-8.2)
[2023-02-26] MEDS: PIPERACILLIN/TAZO 4.5 GM in SODIUM CHLORIDE 0.9% 100 ML IV (05:03)
[2023-02-26] MEDS: SODIUM CHLORIDE 0.9% 1,000 ML 125 ML IV (05:04)
[2023-02-26] MEDS: LACTATED RINGERS 1,000 ML 100 ML IV ×2 (06:32→13:31)
--- NOTE | 2023-02-26 10:55 | P.HP_ITS ---
History of Present Illness History of Present Illness Date Patient Seen: 02/26/23 Time Patient Seen: 10:55 Chief complaint: OBSTRUCTION GI PAIN T-7 Narrative: Seen recently for possible biliary colic, felt better with hydration and went home. Returned last evening with RUQ pain worsening, anorexia, nausea. CT scan I reviewed shows acute cholecystitis as is reflected in LFT's. No evidence of billiary obstruction [facility] Medical History Dysphagia Family history of [place] (myocardial infarction) Hyperlipidemia Hypertension Melanoma in situ Nevus Well adult exam Surgical History H/O hernia repair Family History Father Hypertension Social History marital status: household members: spouse occupational status: employed Smoking Status: Never smoker alcohol intake: current substance use type: does not use Meds Home Medications and Allergies Home Medications Medication Instructions Recorded Confirmed Type lisinopril 20 mg tablet 20 mg PO BEDTIME #90 tabs 07/14/22 02/26/23 Rx lisinopril 20 1 tab PO DAILY #90 tabs 07/14/22 02/26/23 Rx mg-hydrochlorothiazide 12.5 mg tablet simvastatin 20 mg tablet See Rx Instructions .Route 07/14/22 02/26/23 Rx .COMPLEX #90 tabs Allergies Allergy/AdvReac Type Severity Reaction Status Date / Time No Known Drug Allergies Allergy Verified 07/03/22 09:33 Review of Systems Review of Systems ROS: Yes All systems reviewed with the patient and are negative except as oth erwise documented Exam Vital Signs (past 8 hours): - 02/26/23 03:26 02/26/23 03:48 02/26/23 04:07 Temperature 97.7 F Pulse Rate 73 63 Respiratory Rate 18 Blood Pressure 124/70 Pulse Oximetry 99 98 97 Oxygen Delivery Method Room Air Oxygen Flow Rate 02/26/23 04:30 02/26/23 04:31 02/26/23 04:31 Temperature Pulse Rate 67 64 Respiratory Rate 16 Blood Pressure 130/68 Pulse Oximetry 94 98 Oxygen Delivery Method Oxygen Flow Rate 02/26/23 05:00 02/26/23 05:00 02/26/23 05:30 Temperature Pulse Rate 63 Respiratory Rate Blood Pressure 131/82 126/71 Pulse Oximetry 99 Oxygen Delivery Method Oxygen Flow Rate 02/26/23 05:30 02/26/23 07:30 Temperature Pulse Rate 61 65 Respiratory Rate 18 Blood Pressure 124/67 Pulse Oximetry 97 99 Oxygen Delivery Method Oxygen Flow Rate 0 Oxygen Delivery Method Room Air Oxygen Flow Rate 0 Narrative Exam Narrative: Had a 5 day long episode in [facility] and did not seek medical attention due to logistics. Recurred when he returned home. RUQ pain, sharp. Anorexia and nausea. Const General: cooperative and comfortable Nutritional Appearance: average body habitus [facility] Head: normocephalic and atraumatic Eyes General: appearance normal, both eyes and all related structures Sclera: sclerae normal Neck Neck: trachea midline Chest Chest: normal inspection of the chest Resp Effort & Inspection: normal respiratory effort and able to speak in complete sentences Cardio Rate: regular rate Rhythm: regular rhythm GI Palpation: soft and tender (RUQ tender to palpation) Skin General: turgor normal Neuro General: patient alert, patient awake and patient oriented x3 Extrem General: no clubbing, cyanosis or edema Psych Appearance: grossly normal Affect: normal affect Judgment: judgment good Objective Labs 02/26/23 03:35 02/26/23 03:35 Labs: Laboratory Results - last 24 hr 02/26/23 02/26/23 03:35 03:35 WBC 9.5 RBC 4.40 L Hgb 12.8 L Hct 36.8 L MCV 83.8 MCH 29.1 MCHC 34.7 RDW 12.7 Plt Count 242 Neut % (Auto) 57.4 Lymph % (Auto) 26.9 [place] % (Auto) 13.4 Eos % (Auto) 2.0 Baso % (Auto) 0.3 Neut # (Auto) 5500 Lymph # (Auto) 2600 [place] # (Auto) 1300 H Eos # (Auto) 200 Baso # (Auto) 0 Sodium 135 L Potassium 4.0 Chloride 100 Carbon Dioxide 30 BUN 9 Creatinine 0.81 Estimated GFR > 60 BUN/Creatinine Ratio 11.1 Glucose 142 H Calcium 8.8 Total Bilirubin 0.8 AST 97 H ALT 76 H Alkaline Phosphatase 167 H D Total Protein 7.9 Albumin 4.1 Globulin 3.8 Albumin/Globulin Ratio 1.1 Lipase 96 Assessment & Plan Assessment & Plan narrative: Cholecystitis w/o evidence of biliary obstruction Plan: Lap sivla Time Spent With Patient Time with patient: 30 to 49 minutes with 50% spent counseling/coordinating care
[2023-02-26] MEDS: LACTATED RINGERS 1,000 ML 42 ML IV (12:11)
--- NOTE | 2023-02-26 13:13 | SUR.OPER ---
Supine on padded OR bed, head on pillow, safety belt at thigh, left arm padded and tucked at side. Right arm secured on padded arm board <90 degrees abduction. Legs uncrossed. Padded footboard in place. Tape over blanket to secure lower legs.
[2023-02-26] MEDS: BUPIVACAINE 0.5% (PF) 30 ML, EPINEPHrine 0.15 MG INJ (13:30)
--- NOTE | 2023-02-26 14:37 | P.OP_ITS ---
Operative Date/Time/Diagnoses Date of procedure: 02/26/23 Time of procedure: 14:41 Pre-op diagnosis: Acute cholecystitis Post-op diagnosis: other (Gangrenous cholecystitis with intrahepatic abscess) Procedure & Clinicians Procedure: Laparoscopic subtotal cholecystectomy Same procedure as scheduled: No Indications: Acute cholecystitis Surgeon: Clair Diehl Click Yes if Unassisted: Yes Anesthesia Type: General and Local Operative Notes Findings: Gangrenous gallbladder with intrahepatic abscess, acalculous Closure Type: primary Specimen(s): other (Remnants of gallbladder) Prosthetic devices, grafts, tissues, transplants, or devices: remnants of gallbladder Applied: drain(s) (15 fr) and other (surgicel) Estimated Blood Loss (mL): 60 Blood products transfused: none Procedure in detail: Preop diagnosis: Acute cholecystitis Postop diagnosis: Gangrenous cholecystitis with intrahepatic abscess Operative procedure: Laparoscopic subtotal cholecystectomy Surgeon: Azeb Diehl MD Anesthetic: General with ET tube intubation with local Findings: Dense adhesions of omentum to the gallbladder, gangrenous necrotic gallbladder with intrahepatic abscess from the posterior wall. Cystic duct was identified and clipped twice although gallbladder was taken distal to the takeoff of the cystic duct leaving a small rim of tissue. Procedure: Patient placed in a supine position. Prepped and draped in sterile fashion to expose his abdomen. Infraumbilical port site was placed using open technique, all other ports were placed under direct vision including a 10 mm port in the midepigastrium and 2 5 mm ports in the right upper abdomen. Significant amount of time was used in removing the omentum from the face of the gallbladder. LigaSure device was employed for the task. During the procedure the gallbladder ?exploded? draining purulent material into the abdomen which was suctioned immediately from the operative site. Gallbladder was then grasped pushed cephalad for exposure. The area of the cystic duct was comprised of [place] fibrotic fat to dissect through to reveal the cystic duct itself. From there I clipped the cystic duct twice and then went above its origin with the LigaSure and began a subtotal cholecystectomy leaving the back wall only but opening it all in the entirety of the length of the gallbladder so that it can scar in. A 15. Anurag drain was placed into the operative bed. This was after the remnants of the gallbladder were placed into an Endo-Catch bag and pulled through the umbilical port site intact. And a sheet of Surgicel was placed on the posterior wall of the gallbladder. Drain was brought through the most lateral 5 mm port site and sutured to the skin with a 3-0 nylon. I then removed all ports and began closure. Closure consisted of interrupted 0 Vicryl for fascial closure of the infraumbilical port site. Skin was closed a running 4-0 Vicryl. Steri-Strips and sterile dressings were placed. Patient was awakened, extubated, taken to recovery room in stable condition. Needle, instrument, sponge counts were correct. Blood loss: 60 mL Specimen: Remnants of gallbladder of note no stones were identified during the procedure Complications: none Post-operative Condition: stable Disposition: PACU
--- NOTE | 2023-02-26 14:58 | CM.DANOTE ---
Discharge Planning/Care Management CM Discharge Assessment Start: 02/26/23 14:57 Freq: Status: Active Protocol: Document 02/26/23 14:57 STONEY (Rec: 02/26/23 14:58 STONEY [id number]) Discharge Planning Assessment Assigned Marketing Intelligence Manager ISAMAR Beavers DPOA/Assigned Designee Name Lizet Morataya, spouse Contact Information [phone] Advance Directives? No History Provided By Patient Prior Living Arrangements House Household Members spouse,children Type of transporation used prior to Drives own vehicle admit Independent with ADL's Yes Is patient alert and oriented? Yes Barriers to Discharge No Comment Lap Page scheduled today , home after surgery vs tomorrow , no barriers to safe discharge home identified today. Patient indp and active at baseline Discharge Plan Home Transportation Arrangement family Referrals Initiated None needed
[2023-02-26] MEDS: OXYCODONE IR 5 MG TABLET PO (15:04)
[2023-02-26] MEDS: GABAPENTIN 300 MG CAPSULE PO ×2 (15:51→20:25)
[2023-02-26] MEDS: HYDROCODONE/ACET 5/325 TABLET 2 TAB PO ×2 (15:52→19:58)
[2023-02-26] MEDS: SODIUM CHLORIDE 0.9% 250 ML 21 ML IV (15:54)
[2023-02-26] MEDS: PIPERACILLIN/TAZO 3.375 GM in SODIUM CHLORIDE 0.9% 100 ML IV ×2 (15:54→23:20)
--- NOTE | 2023-02-26 16:50 | PC.NURSE ---
Patient taken to preop via bed approximately 1155 a.m. Patient is A&OX4. He denies abdominal pain or nausea this a.m. He is kept NPO all morning. VSS, afebrile on RA. He returns to room 218 at 1530 this afternoon via bed. X4 lap sites to abdomen and NONI drain in RLQ. Moderate bloody drainage. He tolerates jello and applejuice well this afternoon. Patient reports pain to abdomen 7/10 upon arrival from PACU. He is medicated with PRN hydrocodone 2 tabs with good effect. Encouraged to splint abdomen, use IS, SCDS in place. Zosyn antibiotic running to L AC. Continuous monitoring.
[2023-02-26] MEDS: CELECOXIB 200 MG CAPSULE PO (20:22)
[2023-02-26] MEDS: lisinopriL 20 MG TABLET PO (20:23)
[2023-02-27] MEDS: HYDROCODONE/ACET 5/325 TABLET 2 TAB PO ×3 (00:23→13:56)
[2023-02-27 00:26] VITALS: BP 106/60; PULSE 67; RESP 20; TEMP 36.7; O2SAT 95
[2023-02-27 04:00] VITALS: BP 110/60; PULSE 57; RESP 16; TEMP 36.4; O2SAT 94
[2023-02-27] MEDS: SODIUM CHLORIDE 0.9% FLUSH 10 ML IV ×2 (04:13→08:06)
[2023-02-27 05:51] LABS: Add Manual Diff / Slide Review NO; Basophils Absolute Auto 0 /uL (0-100); Basophils Percent Auto 0.1 % (0-2); Eosinophils Absolute Auto 0 /uL (0-450); Hematocrit 33.3 % (41-53); Hemoglobin 11.5 g/dL (13.5-17.5); Lymphocytes Absolute Auto 800 /uL (1100-4500); Lymphocytes Percent Auto 5.7 % (25-40); Mean Corpuscular HGB Conc 34.6 % (30-36); Mean Corpuscular Volume 83.7 fL (80-100); Monocytes Absolute Auto 1100 /uL (0-900); Monocytes Percent Auto 7.8 % (3-14); Neutrophils Absolute Auto 12100 /uL (1500-7000); Neutrophils Percent Auto 86.4 % (50-75); Platelet Count 236 X10^3/uL (150-400); Red Blood Cell Count 3.98 X10^6/uL (4.5-5.9); Red Cell Distribution Width 12.8 % (11.6-14.8)
[2023-02-27 06:09] LABS: Alanine Aminotransferase 366 IU/L (<50); Albumin 3.5 g/dL (3.5-5.0); Alkaline Phosphatase 254 U/L (38-126); Aspartate Aminotransferase 268 IU/L (17-59); BUN Creatinine Ratio 9.5 (6-22); Blood Urea Nitrogen 7 mg/dL (9-20); Calcium 8.4 mg/dL (8.4-10.2); Carbon Dioxide 28 mmol/L (22-32); Chloride 100 mmol/L (98-107); Estimated Glomerular Filt Rate > 60 mL/min (>60); Globulin 3.5 g/dL (1.7-4.1); Glucose 144 mg/dL (70-100); HEMOLYSIS < 15 (0-50); Potassium 4.3 mmol/L (3.4-5.1); Sodium 135 mmol/L (137-145)
--- NOTE | 2023-02-27 06:46 | PC.NURSE ---
Patient checked he's asleep, declined pain medication offered earlier. Encouraged to call RN if he needed pain med. Will continue POC & monitor.
[2023-02-27 08:00] VITALS: BP 103/55; PULSE 60; RESP 16; TEMP 36.5; O2SAT 95
[2023-02-27] MEDS: PIPERACILLIN/TAZO 3.375 GM in SODIUM CHLORIDE 0.9% 100 ML IV (08:04)
[2023-02-27] MEDS: CELECOXIB 200 MG CAPSULE PO (08:05)
[2023-02-27] MEDS: GABAPENTIN 300 MG CAPSULE PO ×2 (08:05→14:00)
[2023-02-27 08:06] VITALS: BP 103/55; PULSE 58
--- NOTE | 2023-02-27 09:53 | P.PN_ITS ---
Subjective Subjective Date Patient Seen: 02/27/23 Time Patient Seen: 09:53 Interval history: Feels ready to go home Exam Vital Signs (past 8 hours): - 02/27/23 04:00 02/27/23 08:06 02/27/23 08:00 Temperature 97.5 F L 97.7 F Pulse Rate 57 L 58 L 60 Respiratory Rate 16 16 Blood Pressure 110/60 103/55 L 103/55 L Pulse Oximetry 94 95 Oxygen Flow Rate 0 Oxygen Delivery Method Room Air Oxygen Flow Rate 0 Narrative Exam Narrative: Abdomen is benign, drain is serosang. Labs have WBC 14,000 and elevated LFTs including Bili at 2.0 Objective Labs 02/27/23 05:02 02/27/23 05:02 Labs: Laboratory Results - last 24 hr 02/27/23 02/27/23 05:02 05:02 WBC 14.0 H RBC 3.98 L Hgb 11.5 L Hct 33.3 L MCV 83.7 MCH 29.0 MCHC 34.6 RDW 12.8 Plt Count 236 Neut % (Auto) 86.4 H D Lymph % (Auto) 5.7 L D [place] % (Auto) 7.8 Eos % (Auto) 0.0 L Baso % (Auto) 0.1 Neut # (Auto) 34617 H Lymph # (Auto) 800 L [place] # (Auto) 1100 H Eos # (Auto) 0 Baso # (Auto) 0 Sodium 135 L Potassium 4.3 Chloride 100 Carbon Dioxide 28 BUN 7 L Creatinine 0.74 Estimated GFR > 60 BUN/Creatinine Ratio 9.5 Glucose 144 H Calcium 8.4 Total Bilirubin 2.0 H AST 268 H ALT 366 H Alkaline Phosphatase 254 H D Total Protein 7.0 Albumin 3.5 Globulin 3.5 Albumin/Globulin Ratio 1.0 PFSH Medical History Dysphagia Family history of [place] (myocardial infarction) Hyperlipidemia Hypertension Melanoma in situ Nevus Well adult exam Surgical History H/O hernia repair Family History Father Hypertension Social History marital status: household members: spouse and children occupational status: employed Smoking Status: Never smoker alcohol intake: current substance use type: does not use Assessment & Plan Post-op Postoperative Procedures: Procedures Operation Date: 02/26/23 13:45 Actual Procedure Side Surgeon p SUB TOTAL Laparoscopic Cholecystectomy Clair Diehl MD Postoperative day: 1 Postoperative status: doing well Postoperative status narrative: Looks great. No bile in drain, bump in LFT's give me pause. Postoperative plan: routine post-op care Postoperative plan narrative: Plan: continue IV antibiotics and drain Repeat labs at 1300. If labs are trending down, then remove drain and discharge home.
[2023-02-27 13:14] LABS: Add Manual Diff / Slide Review NO; Basophils Absolute Auto 0 /uL (0-100); Basophils Percent Auto 0.3 % (0-2); Eosinophils Absolute Auto 100 /uL (0-450); Eosinophils Percent Auto 0.4 % (2-4); Hematocrit 33.8 % (41-53); Hemoglobin 11.5 g/dL (13.5-17.5); Lymphocytes Absolute Auto 1300 /uL (1100-4500); Lymphocytes Percent Auto 8.3 % (25-40); Mean Corpuscular HGB Conc 34.1 % (30-36); Mean Corpuscular Volume 85.1 fL (80-100); Monocytes Absolute Auto 1400 /uL (0-900); Monocytes Percent Auto 9.2 % (3-14); Neutrophils Absolute Auto 12900 /uL (1500-7000); Neutrophils Percent Auto 81.8 % (50-75); Platelet Count 254 X10^3/uL (150-400); Red Blood Cell Count 3.97 X10^6/uL (4.5-5.9); White Blood Cell Count 15.8 X10^3/uL (4.5-11.0)
[2023-02-27 13:38] LABS: Alanine Aminotransferase 352 IU/L (<50); Albumin 3.6 g/dL (3.5-5.0); Albumin Globulin Ratio 1.2 (1.0-2.8); Alkaline Phosphatase 258 U/L (38-126); Aspartate Aminotransferase 220 IU/L (17-59); BUN Creatinine Ratio 14.1 (6-22); Bilirubin Total 1.1 mg/dL (0.2-1.3); Blood Urea Nitrogen 10 mg/dL (9-20); Calcium 8.6 mg/dL (8.4-10.2); Carbon Dioxide 28 mmol/L (22-32); Chloride 99 mmol/L (98-107); Estimated Glomerular Filt Rate > 60 mL/min (>60); Globulin 2.9 g/dL (1.7-4.1); Glucose 115 mg/dL (70-100); HEMOLYSIS < 15 (0-50); Potassium 4.1 mmol/L (3.4-5.1); Sodium 136 mmol/L (137-145); Total Protein 6.5 g/dL (6.3-8.2)
--- NOTE | 2023-02-27 14:32 | CM.DPC ---
DCP Cont: Per Surgeon, pt's white count remained somewhat elevated and pending his lab results today, if stable then pt could likely have drain d/c'd and have a dose of IV-Abx and then discharge to home on PO meds. Pt resides in [place] with his who is an Pharmacist and their children and pt is active and independent at baseline and has been independent in room. Plan: SW to follow closely for labs to determine if pt can d/c home today via spouse POV vs tomorrow and any further identified discharge planning needs. ISAMAR Obrien
== END 2023-02-27 15:40 | disposition home or self-care (01) ==
LOC: ED 04:45 → AC 05:33
PROVIDERS: Admitting Provider Surgery; Emergency Provider Emergency Medicine; PCP Family Medicine; Referring Provider Emergency Medicine; Visit Provider Surgery
PROC: 0FT44ZZ Resection of Gallbladder, Percutaneous Endoscopic Approach (ICD-10-PCS; CPT 47562; principal; 2023-02-26 13:45)
DX: K81.0 Acute cholecystitis (principal); K82.A1 Gangrene of gallbladder in cholecystitis; K75.0 Abscess of liver
CPT/HCPCS: 47562; 36415; 74177; 80053; 83690; 85025; 96361; 96365; 96366; 99221; 99284; G0378; J0171; J1100; J1885; J2250; J2405; J2543; J2704; J3010; Q9967

== ENCOUNTER → 2023-03-18 12:52 | Outpatient (CLI) | payer BC, SELFPAY ==
[2023-02-26 05:55] VITALS: BMI 29.8
[2023-03-18 15:33] LABS: Add Manual Diff / Slide Review NO; Basophils Absolute Auto 0 /uL (0-100); Basophils Percent Auto 0.4 % (0-2); Eosinophils Absolute Auto 100 /uL (0-450); Eosinophils Percent Auto 1.6 % (2-4); Hematocrit 37.7 % (41-53); Hemoglobin 13.2 g/dL (13.5-17.5); Lymphocytes Absolute Auto 1600 /uL (1100-4500); Lymphocytes Percent Auto 18.9 % (25-40); Mean Corpuscular Hemoglobin 29.1 PG (26-34); Monocytes Absolute Auto 1000 /uL (0-900); Monocytes Percent Auto 11.9 % (3-14); Neutrophils Absolute Auto 5600 /uL (1500-7000); Neutrophils Percent Auto 67.2 % (50-75); Platelet Count 351 X10^3/uL (150-400); Red Blood Cell Count 4.54 X10^6/uL (4.5-5.9); Red Cell Distribution Width 12.7 % (11.6-14.8); White Blood Cell Count 8.4 X10^3/uL (4.5-11.0)
[2023-03-18 15:54] LABS: Alanine Aminotransferase 38 IU/L (<50); Albumin 4.5 g/dL (3.5-5.0); Albumin Globulin Ratio 1.4 (1.0-2.8); Alkaline Phosphatase 131 U/L (38-126); Aspartate Aminotransferase 29 IU/L (17-59); Bilirubin Total 0.7 mg/dL (0.2-1.3); Blood Urea Nitrogen 14 mg/dL (9-20); Calcium 9.7 mg/dL (8.4-10.2); Carbon Dioxide 28 mmol/L (22-32); Chloride 97 mmol/L (98-107); Estimated Glomerular Filt Rate > 60 mL/min (>60); Globulin 3.2 g/dL (1.7-4.1); Glucose 97 mg/dL (70-100); HEMOLYSIS < 15 (0-50); Potassium 4.5 mmol/L (3.4-5.1); Sodium 136 mmol/L (137-145); Total Protein 7.7 g/dL (6.3-8.2)
== END ==
PROVIDERS: PCP Family Medicine; Referring Provider Surgery; Visit Provider Surgery
DX: Z48.89 Encounter for other specified surgical aftercare (principal)
CPT/HCPCS: 36415; 80053; 85025

== ENCOUNTER → 2023-07-16 13:38 | Outpatient (CLI) | payer OTHER, SELFPAY ==
[2023-07-13 15:41] VITALS: BMI 29.8
--- NOTE | 2023-07-16 13:40 | DI.RAD.S_ITS ---
PROCEDURE: XR FOOT RT MIN 3V INDICATIONS: Persistent right foot pain after ski injury, laterally TECHNIQUE: 3 views of the foot were acquired. COMPARISON: [facility], CR, XR FOOT LT MIN 3V, 02/02/2022, 16:22. [facility] [place], CR, XR FOOT 3 VIEWS WEIGHT BEARING LEFT, 03/02/2022, 11:04. FINDINGS: Bones: No fractures or dislocations. No suspicious bony lesions. Soft tissues: No tibiotalar joint effusion. Achilles tendon appears normal. IMPRESSION: No visualized acute fracture or dislocation. However, if clinical concern and/or pain persist, short interval imaging followup in 7-10 days is recommended, as occult injury cannot be definitively excluded. Dictated by: Maria Dolores Amato M.D. on 07/16/2023 at 16:29 Approved by: Maria Dolores Amato M.D. on 07/16/2023 at 16:29
== END ==
LOC: RAD 13:40
PROVIDERS: PCP Family Medicine; Referring Provider Family Medicine; Visit Provider Family Medicine
DX: M79.671 Pain in right foot (principal)
CPT/HCPCS: 73630

== ENCOUNTER 2023-10-28 09:37 | Emergency (ER) | payer OTHER, SELFPAY ==
[2023-07-13 15:41] VITALS: BMI 29.8
[2023-10-28 09:38] VITALS: BP 137/86; PULSE 75; RESP 15; TEMP 36.6; O2SAT 97; BMI 31.2
--- NOTE | 2023-10-28 09:48 | DI.RAD.S_ITS ---
PROCEDURE: XR FINGER LT MIN 2V INDICATIONS: dislocated finger TECHNIQUE: AP hand, 2 views of the left 4th finger(s) acquired. COMPARISON: None. FINDINGS: Bones: 4th middle phalange is dislocated dorsally and medially. No fracture. Soft tissues: No suspicious soft tissue calcifications. IMPRESSION: Fourth PIP joint dislocation. Dictated by: Mariely Smith MD, PhD on 10/28/2023 at 10:29 Approved by: Mariely Smith MD, PhD on 10/28/2023 at 10:30
--- NOTE | 2023-10-28 10:40 | ED_ITS ---
HPI - Extremity Injury (Upper) General Chief Complaint: Extremity Injury, Upper Stated Complaint: broke finger on lt hand Time Seen by Provider: 10/28/23 10:36 Source: patient Mode of arrival: Ambulatory Limitations: no limitations History of Present Illness HPI narrative: 53-year-old male who [place] ramp standing on the tongue of his boat slipped put his arm out and has obvious deformity of his 4th digit on his left hand. Patient states there is pain at the joint. No numbness or tingling. He denies other injuries. Related Data Previous Rx's Medication Instructions Recorded celecoxib 200 mg capsule (Celebrex) 200 mg PO BID #60 caps 02/27/23 gabapentin 300 mg capsule 300 mg PO TID #60 caps 02/27/23 lisinopril 20 mg tablet 20 mg PO BEDTIME #90 tabs 10/05/23 lisinopril 20 1 tab PO DAILY #90 tabs 10/05/23 mg-hydrochlorothiazide 12.5 mg tablet simvastatin 20 mg tablet See Rx Instructions .Route 10/05/23 .COMPLEX #90 tabs Allergies Allergy/AdvReac Type Severity Reaction Status Date / Time No Known Drug Allergies Allergy Verified 10/28/23 09:46 Review of Systems Review of Systems ROS Unobtainable: All systems reviewed & are unremarkable except as noted in HPI and below Patient History Medical History Right foot pain Well adult exam Dysphagia Melanoma in situ Nevus Family history of [place] (myocardial infarction) Hyperlipidemia Hypertension Surgical History H/O hernia repair Family History Father Hypertension Social History marital status: household members: spouse and children occupational status: employed Smoking Status: Never smoker alcohol intake: current substance use type: does not use Smoking Status: Never smoker alcohol intake frequency: holidays/special occasions only Substance Use Type: does not use Exam Narrative Exam Narrative: GENERAL: Alert and oriented x three, mild distress. HEENT: Head normocephalic, atraumatic, EOMI, pupils reactive, face symmetric, moist mucous membranes NECK: Supple, full range of motion EXTREMITIES: Normal range of motion except for the left finger which has obvious deformity at the distal interphalangeal joint which is angulated dorsally and medial. Patient has 2+ cap refill in all 5 fingers. No other bony tenderness. Patient has 2+ radial pulse. No clubbing or edema. Neurovascularly intact NEUROLOGICAL: Cranial nerves II through XII grossly intact. Moving all extremities SKIN: Warm, dry, no petechiae, no rashes or lesions. Initial Vital Signs Initial Vital Signs: Vital Signs Temperature 97.9 F 10/28/23 09:38 Pulse Rate 75 10/28/23 09:38 Respiratory Rate 15 10/28/23 09:38 Blood Pressure 137/86 10/28/23 09:38 Pulse Oximetry 97 10/28/23 09:38 Oxygen Delivery Method Room Air 10/28/23 09:38 Procedures Orthopedic Joint Reduction Joint #1: Side: left Joint Reduction Location: finger Analgesia: none Shoulder Technique Used (if applicable): traction/counter-traction Technique used: traction/counter-traction and direct manipulation Post-reduction neuro exam: intact and no change Post-reduction vascular: intact and no change Post Reduction X-Ray Obtained: Yes Post Reduction X-Ray Results: reduced Splint Applied: Yes Patient Tolerated Procedure: Well and No complications Course Orders Ordered: ED Orders 10/28/23 10:46 XR hand LT min 3V Stat Discontinued Medications Bacitracin (Bacitracin Oint 0.9 Gm Pckt) 1 applic TOP NOW ONE Stop: 10/28/23 11:05 Last Admin: 10/28/23 11:19 Dose: 1 applic Documented By: SPF Diphtheria/Tetanus/Acell Pertussis (Tet,Diph,Pertuss(Acell),Vac/Pf 0.5 Ml Syringe) 0.5 ml IM .ONCE ONE Stop: 10/28/23 10:48 Last Admin: 10/28/23 10:57 Dose: 0.5 ml Documented By: YONATHAN Ibuprofen (Ibuprofen 400 Mg Tablet) 800 mg PO NOW ONE Stop: 10/28/23 10:49 Last Admin: 10/28/23 10:57 Dose: Not Given Documented By: YONATHAN Vital Signs Vital signs: Vital Signs - 8 hr 10/28/23 09:38 10/28/23 11:14 Temperature 97.9 F Pulse Rate 75 78 Respiratory Rate 15 16 Blood Pressure 137/86 119/69 Pulse Oximetry 97 96 Oxygen Delivery Method Room Air Room Air MDM - Extremity Injury (Upper) Imaging Data Extremity x-ray #1: Radiologist's Impression: Roel Chan?(Mahamed)??53??M??1970 ? Allergy/Adv: No Known Drug Allergies (More??) Close Finger X-Ray (Signed) Mariely Smith - 10/28/23 Foot X-Ray (Signed) Maria Dolores Amato - 07/16/23 Abdomen/Pelvis CT (Signed) HarisJacek - 02/26/23 Foot X-Ray (Signed) Genaro Castellanos - 02/02/22 Upper GI Series (Signed) Mahamed Michael - 12/24/20 Launch?Image [address] [address] XRay Report Signed Patient: Roel Chan MR#: [id number] : 1970 Acct:[id number] Age/Sex: 53 / M Date of Service: 10/28/23 Loc: ED Accession Number: [id number] Procedure: XR finger LT min 2V Ordering Provider: Carmen Pierce D.O. PROCEDURE: XR FINGER LT MIN 2V INDICATIONS: dislocated finger TECHNIQUE: AP hand, 2 views of the left 4th finger(s) acquired. COMPARISON: None. FINDINGS: Bones: 4th middle phalange is dislocated dorsally and medially. No fracture. Soft tissues: No suspicious soft tissue calcifications. IMPRESSION: Fourth PIP joint dislocation. Dictated by: Mariely Smith MD, PhD on 10/28/2023 at 10:29 Approved by: Mariely Smith MD, PhD on 10/28/2023 at 10:30 Extremity x-ray #2: Radiologist's Impression: [address] [address] XRay Report Signed Patient: Roel Chan MR#: [id number] : 1970 Acct:[id number] Age/Sex: 53 / M Date of Service: 10/28/23 Loc: ED Accession Number: [id number] Procedure: XR hand LT min 3V Ordering Provider: Carmen Pierce D.O. PROCEDURE: XR HAND LT MIN 3V INDICATIONS: POST REDUCTION TECHNIQUE: 3 views of the hand(s) acquired. COMPARISON: [facility], CR, XR FINGER LT MIN 2V, 10/28/2023, 9:59. FINDINGS: Bones: 4th PIP joint dislocation has been reduced. No fractures. Carpal bones are normally aligned. No suspicious bony lesions. Soft tissues: No suspicious soft tissue calcifications. IMPRESSION: Successful 4th PIP joint dislocation reduction. Dictated by: Mariely Smith MD, PhD on 10/28/2023 at 11:07 Approved by: Mariely Smith MD, PhD on 10/28/2023 at 11:08 [facility] Narrative Medical decision making narrative: 53-year-old male presents with a what appears to be finger dislocation. X-ray confirms. No obvious fracture. Patient was reduced at bedside without issue. Repeat x-ray shows no obvious fractures. Patient was placed in splint is neurovascularly intact pre and post. Discharge Plan Departure Patient Disposition: Home Clinical Impression: Dislocation closed, finger Instructions: DI for Finger Dislocation Activity Restrictions/Additional Instructions: Follow up in the next week if your symptoms have not completely resolved. You can remove your splint in the next several days. You may take Tylenol up to a 1000 mg every 6 hours as needed and/or ibuprofen up to 600 mg every 6 hours as needed. Splint Care: Keep splint clean and dry. Elevated affected body part to decrease swelling. OK to use ice pack on the affected body part. Use for 15-20 minutes each time, for 5-6x per day. If you develop worsening pain, numbness, tingling, discoloration of the affected body part, loosen the splint by loosening the JANET wrap, and either see your doctor for an urgent re-assessment, or return to the Emergency Department. Return to the Emergency Department for any new or worsening symptoms. Prescriptions: No Action lisinopril 20 mg tablet 20 mg PO BEDTIME Qty: 90 3RF lisinopril-hydrochlorothiazide 20-12.5 mg tablet 1 tab PO DAILY Qty: 90 3RF Patient Comments: Takes AM simvastatin 20 mg tablet See Rx Instructions .ROUTE .COMPLEX Qty: 90 3RF Dose Instruction: TAKE 1 TABLET BY MOUTH DAILY Rx Instructions: TAKE 1 TABLET BY MOUTH DAILY celecoxib [Celebrex] 200 mg Capsule 200 mg PO BID Qty: 60 0RF gabapentin 300 mg Capsule 300 mg PO TID Qty: 60 0RF Referrals: Kavin Benítez DO [Primary Care Provider] - Stand Alone Forms: Patient Portal/API
--- NOTE | 2023-10-28 10:46 | DI.RAD.S_ITS ---
PROCEDURE: XR HAND LT MIN 3V INDICATIONS: POST REDUCTION TECHNIQUE: 3 views of the hand(s) acquired. COMPARISON: [facility], CR, XR FINGER LT MIN 2V, 10/28/2023, 9:59. FINDINGS: Bones: 4th PIP joint dislocation has been reduced. No fractures. Carpal bones are normally aligned. No suspicious bony lesions. Soft tissues: No suspicious soft tissue calcifications. IMPRESSION: Successful 4th PIP joint dislocation reduction. Dictated by: Mariely Smith MD, PhD on 10/28/2023 at 11:07 Approved by: Mariely Smith MD, PhD on 10/28/2023 at 11:08
[2023-10-28] MEDS: TET,DIPH,PERTUSS(ACELL),VAC/PF 0.5 ML SYRINGE IM (10:57)
[2023-10-28 11:14] VITALS: BP 119/69; PULSE 78; RESP 16; O2SAT 96
[2023-10-28] MEDS: BACITRACIN OINT 0.9 GM PCKT 1 APPLIC TOP (11:19)
== END 2023-10-28 11:30 | disposition home or self-care (01) ==
PROVIDERS: Emergency Provider Emergency Medicine; PCP Family Medicine
DX: S63.285A Dislocation of proximal interphalangeal joint of left ring finger, initial encounter (principal); W01.0XXA Fall on same level from slipping, tripping and stumbling without subsequent striking against object, initial encounter; Z79.899 Other long term (current) drug therapy; Z23 Encounter for immunization
CPT/HCPCS: 26770; 29130; 73130; 73140; 90471; 99284; 90715

== ENCOUNTER → 2024-03-13 19:11 | Outpatient (CLI) | payer BC, SELFPAY ==
[2023-07-13 15:41] VITALS: BMI 29.8
--- NOTE | 2024-03-13 19:14 | DI.RAD.S_ITS ---
PROCEDURE: XR FOOT RT MIN 3V INDICATIONS: pain across /ball /top of foot when walking TECHNIQUE: 3 views of the foot were acquired. COMPARISON: [facility], CR, XR FOOT RT MIN 3V, 07/16/2023, 13:41. FINDINGS: Bones: There are no osseous abnormalities Joints: The joint spaces are normal in width and alignment without arthritic change. Soft tissues: No soft tissue abnormality. IMPRESSION: Normal. Dictated by: Randall Benjamin M.D. on 03/14/2024 at 8:38 Approved by: Randall Benjamin M.D. on 03/14/2024 at 8:39
== END ==
PROVIDERS: PCP Family Medicine; Referring Provider Physician Assistant; Visit Provider Physician Assistant
DX: M79.671 Pain in right foot (principal)
CPT/HCPCS: 73630

== ENCOUNTER → 2024-03-31 10:38 | Outpatient (CLI) | payer BC, SELFPAY ==
[2023-07-13 15:41] VITALS: BMI 29.8
--- NOTE | 2024-03-31 10:39 | DI.RAD.S_ITS ---
PROCEDURE: XR SHOULDER LT MIN 2V INDICATIONS: Worsening left shoulder pain TECHNIQUE: Three-view of the shoulder were acquired. COMPARISON: None. FINDINGS: Bones: There are no osseous abnormalities. Acromioclavicular and glenohumeral joints: Moderate acromioclavicular degeneration noted. Glenohumeral joint is normal. Soft tissues: No soft tissue swelling, calcification or mass. IMPRESSION: Moderate acromioclavicular degeneration. Dictated by: Randall Benjamin M.D. on 04/03/2024 at 8:41 Approved by: Randall Benjamin M.D. on 04/03/2024 at 8:42
== END ==
PROVIDERS: PCP Family Medicine; Referring Provider Family Medicine; Visit Provider Family Medicine
DX: M19.012 Primary osteoarthritis, left shoulder (principal); M75.00 Adhesive capsulitis of unspecified shoulder
CPT/HCPCS: 73030

== ENCOUNTER 2024-05-22 08:05 | Emergency (ER) | payer BC, SELFPAY ==
[2023-07-13 15:41] VITALS: BMI 29.8
[2024-05-22] VITALS (7 sets, daily range): BP systolic 110–139; BP diastolic 68–83; PULSE 61–74; RESP 16; TEMP 36.1; O2SAT 94–97; BMI 30.6
--- NOTE | 2024-05-22 08:14 | ED.FALL ---
HPI - Fall General Chief Complaint: Fall Stated Complaint: poss dislocated rib Time Seen by Provider: 05/22/24 08:14 Source: patient, RN notes reviewed and old records reviewed Mode of arrival: Ambulatory Limitations: no limitations History of Present Illness HPI Narrative: 54-year-old male history of hypertension and dyslipidemia who presents with complaint of right posterior rib pain. Patient was skiing last Wednesday, 3 days ago went off a little bit of a jump and landed holding forward with his head towards his chin. States hit his back and describes knocking the wind out of himself. He states he was able to breathe a little bit better after about a minute. He states over the 2 hours [address] took to drive home afterwards he started to feel tighter and more uncomfortable in his had increasing pain in that area over the last day or 2. He states has not improved so came for evaluation. He states movement makes his symptoms worse he is felt occasional clicking sound was concerned he may have injured a rib. Patient states no headache, no neck or midline back pain. No shortness of breath. No nausea or vomiting no dizziness. No numbness tingling or weakness of extremities. No difficulties with movement other than getting out of his car or moving his chest. He is tried ibuprofen and muscle relaxants without any improvement of his symptoms. Patient's last dose of ibuprofen was this morning. Patient does not take any anticoagulants. States he has had a prior cholecystectomy and prior hernia repair. No tobacco, no regular alcohol, no recreational drugs. Dr. Benítez is his primary care physician. Related Data Previous Rx's Medication Instructions Recorded lisinopril 20 mg tablet 20 mg PO BEDTIME #90 tabs 10/05/23 lisinopril 20 1 tab PO DAILY #90 tabs 10/05/23 mg-hydrochlorothiazide 12.5 mg tablet simvastatin 20 mg tablet See Rx Instructions .Route 10/05/23 .COMPLEX #90 tabs Allergies Allergy/AdvReac Type Severity Reaction Status Date / Time No Known Drug Allergies Allergy Verified 03/31/24 10:04 Review of Systems Review of Systems ROS Unobtainable: All systems reviewed & are unremarkable except as noted in HPI and below Patient History Medical History Adhesive capsulitis of shoulder Right foot pain Well adult exam Dysphagia Melanoma in situ Nevus Family history of [place] (myocardial infarction) Hyperlipidemia Hypertension Surgical History H/O hernia repair Family History Father Hypertension Social History marital status: household members: spouse and children occupational status: employed Smoking Status: Never smoker alcohol intake: current substance use type: does not use Smoking Status: Never smoker alcohol intake frequency: holidays/special occasions only Substance Use Type: does not use Exam Narrative Exam Narrative: GEN: Patient appears in mild distress. HEAD: No evidence of trauma, no raccoon/Krueger sign. NECK: Nontender, painless range of motion, trachea midline Negative Nexus criteria, no midline line tenderness, distracting injury, altered mental status, neuro deficit, recent EtOH. EYES: PERRLA, EOMI ENT: External inspection normal, trachea is midline, Nares are clear, no septal hematoma, no dental or oral injury, airway is normal and with normal occlusion, No bony tenderness RESP: Chest is nontender on exam no discrete palpable pain and has symmetric movement, no ecchymosis, breath sounds are normal no crackles, wheezes or rales, no tachypnea accessory muscle use. CVS: Heart sounds are normal, no murmur noted, No JVD. ABG/GI: Nontender, soft, normal bowel sounds, no distention, no organomegaly. NEURO: Oriented AOx3, neuro is grossly intact, sensation and motor is normal all 4 extremities moving, cranial nerves II through XII are intact, GCS is 15 PSYCH: Normal mood and affect SKIN: Intact, warm and dry, no crepitus and without decubitus BACK: No CVA tenderness, no vertebral tenderness, no step-off's, no crepitus EXT: Atraumatic, hips are nontender, normal range of motion of extremities. Normal gait. Initial Vital Signs Initial Vital Signs: Vital Signs Temperature 97.0 F L 05/22/24 08:08 Pulse Rate 74 05/22/24 08:08 Respiratory Rate 16 05/22/24 08:08 Blood Pressure 132/80 05/22/24 08:08 Pulse Oximetry 97 05/22/24 08:08 Oxygen Delivery Method Room Air 05/22/24 08:08 Course Orders Ordered: ED Orders 05/22/24 08:20 XR ribs RT min 3V w CXR1V Stat Vital Signs Vital signs: Vital Signs - 8 hr 05/22/24 08:08 05/22/24 08:14 05/22/24 08:15 Temperature 97.0 F L Pulse Rate 74 67 Respiratory Rate 16 Blood Pressure 132/80 139/83 Pulse Oximetry 97 96 Oxygen Delivery Method Room Air 05/22/24 08:15 05/22/24 08:30 05/22/24 08:30 Temperature Pulse Rate 71 65 Respiratory Rate Blood Pressure 132/77 Pulse Oximetry 97 95 Oxygen Delivery Method MDM - Fall MDM Narrative Medical decision making narrative: 54-year-old male who had an injury while skiing last Wednesday. Patient describes right-sided rib pain more posterior he denies any pain anteriorly. Had an injury where he went off a jump sort of fell forward and then onto his back. Patient has normal GCS, no midline neck or back pain. Not able to reproduce any of his pain on exam but he notes it is worse with movement and feels a clicking feel or sound. He has good breath sounds bilaterally. Chest x-ray is obtained to evaluate for pneumothorax which seems less likely, rib fracture versus potential contusion. Chest x-ray shows no acute change, no displaced rib fracture or pneumothorax, no dislocations. Discussed with patient we will treat as a rib fracture although he does not have any point tenderness. He defers anything stronger than Tylenol or ibuprofen for pain. Discussed return precautions. Discharge Plan Departure Patient Disposition: Home Clinical Impression: Rib pain on right side Instructions: DI for Rib Fracture Activity Restrictions/Additional Instructions: Your chest x-ray is negative for rib fracture. I would recommend bracing yourself for using a pillow or blanket to brace when you need to sneeze or cough. You can take acetaminophen up to a 1000 mg every 6 hours and/or ibuprofen up to 600 mg every 6 hours as needed for pain Please return for new or worsening chest pain, increasing shortness of breath, lightheadedness or passing out, coughing up blood, new bruising or skin changes or other new or concerning changes. Prescriptions: No Action lisinopril 20 mg tablet 20 mg PO BEDTIME Qty: 90 3RF lisinopril-hydrochlorothiazide 20-12.5 mg tablet 1 tab PO DAILY Qty: 90 3RF Patient Comments: Takes AM simvastatin 20 mg tablet See Rx Instructions .ROUTE .COMPLEX Qty: 90 3RF Dose Instruction: TAKE 1 TABLET BY MOUTH DAILY Rx Instructions: TAKE 1 TABLET BY MOUTH DAILY Referrals: Kavin Benítez DO [Primary Care Provider] - Stand Alone Forms: Patient Portal/API/Survey
--- NOTE | 2024-05-22 08:20 | DI.RAD.S_ITS ---
PROCEDURE: XR RIBS RT MIN 3V W CXR 1V INDICATIONS: right post rib/thoracic pain, no midline, fall skiing wednesday TECHNIQUE: 2 views of the ribs were acquired, along with a single view chest. COMPARISON: None. FINDINGS: Surgical changes and devices: None. Bones and chest wall: No fractures or dislocations. No suspicious bony lesions. Overlying soft tissues appear unremarkable. Lungs and pleura: No pleural effusions or pneumothorax. Lungs appear clear. Mediastinum: Mediastinal contours appear normal. Heart size is normal. IMPRESSION: No displaced rib fracture or pneumothorax. Dictated by: Harjit Odom M.D. on 05/22/2024 at 9:57 Approved by: Harjit Odom M.D. on 05/22/2024 at 9:57
== END 2024-05-22 10:26 | disposition home or self-care (01) ==
PROVIDERS: Emergency Provider Emergency Medicine; PCP Family Medicine
DX: R07.89 Other chest pain (principal); W19.XXXA Unspecified fall, initial encounter; Y93.23 Activity, snow (alpine) (downhill) skiing, snowboarding, sledding, tobogganing and snow tubing
CPT/HCPCS: 71101; 99281; 99283

== ENCOUNTER → 2024-09-13 07:56 | Outpatient (CLI) | payer BC, SELFPAY ==
[2023-07-13 15:41] VITALS: BMI 29.8
[2024-09-13 09:00] LABS: Add Manual Diff / Slide Review NO; Basophils Absolute Auto 0 /uL (0-100); Basophils Percent Auto 0.5 % (0-2); Eosinophils Absolute Auto 100 /uL (0-450); Eosinophils Percent Auto 1.3 % (2-4); Hematocrit 42.3 % (41-53); Hemoglobin 14.5 g/dL (13.5-17.5); Lymphocytes Absolute Auto 1600 /uL (1100-4500); Lymphocytes Percent Auto 23.6 % (25-40); Mean Corpuscular HGB Conc 34.4 % (30-36); Mean Corpuscular Hemoglobin 29.4 PG (26-34); Mean Corpuscular Volume 85.6 fL (80-100); Monocytes Absolute Auto 700 /uL (0-900); Monocytes Percent Auto 10.6 % (3-14); Neutrophils Absolute Auto 4300 /uL (1500-7000); Platelet Count 234 X10^3/uL (150-400); Red Blood Cell Count 4.94 X10^6/uL (4.5-5.9); Red Cell Distribution Width 12.7 % (11.6-14.8); White Blood Cell Count 6.7 X10^3/uL (4.5-11.0)
[2024-09-13 09:41] LABS: Alanine Aminotransferase 28 IU/L (<50); Albumin 4.8 g/dL (3.5-5.0); Albumin Globulin Ratio 1.9 (1.0-2.8); Alkaline Phosphatase 86 U/L (38-126); Aspartate Aminotransferase 26 IU/L (17-59); BUN Creatinine Ratio 16.9 (6-22); Bilirubin Total 0.9 mg/dL (0.2-1.3); Blood Urea Nitrogen 14 mg/dL (9-20); Calcium 9.5 mg/dL (8.4-10.2); Carbon Dioxide 25 mmol/L (22-32); Chloride 103 mmol/L (98-107); Cholesterol 177 mg/dL (140-199); Estimated Glomerular Filt Rate > 60 mL/min (>60); Globulin 2.5 g/dL (1.7-4.1); Glucose 106 mg/dL (70-100); HDL Cholesterol 43 mg/dL (40-60); HEMOLYSIS < 15 (0-50); LDL Cholesterol Calculated 100 mg/dL (<100); Potassium 4.4 mmol/L (3.4-5.1); Sodium 138 mmol/L (137-145); Total Protein 7.3 g/dL (6.3-8.2); Triglycerides 171 mg/dL (35-150)
[2024-09-13 10:07] LABS: Prostate Specific Antigen 0.693 ng/mL (0.10-4.00)
== END ==
PROVIDERS: PCP Family Medicine; Referring Provider Family Medicine; Visit Provider Family Medicine
DX: Z00.00 Encounter for general adult medical examination without abnormal findings (principal); E78.5 Hyperlipidemia, unspecified; I10 Essential (primary) hypertension
CPT/HCPCS: 36415; 80053; 80061; 84153; 85025

== ENCOUNTER 2024-11-10 16:24 | Observation (INO) | payer BC, SELFPAY ==
[2023-07-13 15:41] VITALS: BMI 29.8
[2024-11-10 16:39] VITALS: BP 150/86; PULSE 63; RESP 18; TEMP 36.6; O2SAT 97; BMI 30.9
--- NOTE | 2024-11-10 17:02 | DI.CT.S_ITS ---
PROCEDURE: CT ABDOMEN PELVIS W CON INDICATIONS: Right lower quadrant TECHNIQUE: After the administration of intravenous contrast, axial sections acquired from the lung bases to the pubic symphysis. Coronal and sagittal reformats were performed. For radiation dose reduction, the following was used: automated exposure control, adjustment of mA and/or kV according to patient size. COMPARISON: [facility], CT, CT ABDOMEN PELVIS W CON, 02/26/2023, 3:55. FINDINGS: Image quality: Diagnostic. Lower Chest: No significant findings. ABDOMEN: Liver: No solid mass. Gallbladder: Absent. Biliary ducts: No intrahepatic or extrahepatic biliary dilation, accounting for a post cholecystectomy state. Pancreas: No ductal dilation. Spleen: Size is within normal limits. Adrenal Glands: No adrenal nodules. Kidneys and Ureters: No hydronephrosis. No solid mass. No complex renal cystic lesion which requires follow up. Small burden of bilateral, punctate, nonobstructing nephrolithiasis. Stomach and Bowel: The appendix is dilated, with a diffusely thickened wall. This is dilated up to 1.3 cm. There is periappendiceal fat stranding . Peritoneum: No abnormal intraperitoneal fluid. No free air. Ventral Wall: No significant ventral hernia. Abdominal Nodes: No retroperitoneal or mesenteric adenopathy by size criteria. Vessels: Aorta and inferior vena cava are normal in size. PELVIS: Pelvic Organs: Unremarkable. Bladder: No bladder wall thickening, accounting for underdistention. Pelvic Nodes: No enlarged lymph nodes. Miscellaneous: No inguinal hernias are seen. Bones: No aggressive osseous abnormality. IMPRESSION: Acute appendicitis without evidence of perforation or abscess. Bilateral nonobstructing nephrolithiasis. No hydronephrosis. Dictated by: Harjit Odom M.D. on 11/10/2024 at 18:10 Approved by: Harjit Odom M.D. on 11/10/2024 at 18:12
[2024-11-10 17:14] LABS: Add Manual Diff / Slide Review NO; Basophils Absolute Auto 0 /uL (0-100); Basophils Percent Auto 0.3 % (0-2); Eosinophils Absolute Auto 100 /uL (0-450); Eosinophils Percent Auto 0.5 % (2-4); Hematocrit 43.1 % (41-53); Hemoglobin 14.8 g/dL (13.5-17.5); Lymphocytes Absolute Auto 1100 /uL (1100-4500); Lymphocytes Percent Auto 8.4 % (25-40); Mean Corpuscular HGB Conc 34.4 % (30-36); Mean Corpuscular Hemoglobin 29.5 PG (26-34); Mean Corpuscular Volume 85.7 fL (80-100); Monocytes Absolute Auto 1100 /uL (0-900); Monocytes Percent Auto 7.8 % (3-14); Neutrophils Absolute Auto 11300 /uL (1500-7000); Platelet Count 238 X10^3/uL (150-400); Red Blood Cell Count 5.02 X10^6/uL (4.5-5.9); Red Cell Distribution Width 12.6 % (11.6-14.8); White Blood Cell Count 13.6 X10^3/uL (4.5-11.0)
[2024-11-10 17:20] LABS: Alanine Aminotransferase 32 IU/L (<50); Albumin 4.8 g/dL (3.5-5.0); Albumin Globulin Ratio 1.5 (1.0-2.8); Alkaline Phosphatase 87 U/L (38-126); Aspartate Aminotransferase 30 IU/L (17-59); BUN Creatinine Ratio 16.5 (6-22); Bilirubin Total 0.9 mg/dL (0.2-1.3); Blood Urea Nitrogen 13 mg/dL (9-20); Calcium 9.5 mg/dL (8.4-10.2); Carbon Dioxide 27 mmol/L (22-32); Chloride 102 mmol/L (98-107); Estimated Glomerular Filt Rate > 60 mL/min (>60); Globulin 3.2 g/dL (1.7-4.1); Glucose 107 mg/dL (70-99); HEMOLYSIS < 15 (0-50); Lipase 71 U/L (23-300); Sodium 138 mmol/L (137-145)
[2024-11-10 19:05] VITALS: PULSE 57; RESP 19; O2SAT 99
[2024-11-10] MEDS: PIPERACILLIN/TAZO 4.5 GM in SODIUM CHLORIDE 0.9% 100 ML IV (19:22)
[2024-11-10 19:30] VITALS: PULSE 58; RESP 20; O2SAT 98
--- NOTE | 2024-11-10 19:40 | ED_ITS ---
HPI - Abdominal Pain General Chief Complaint: Abdominal Pain Stated Complaint: stomach pains Time Seen by Provider: 11/10/24 19:09 Source: patient, RN notes reviewed and old records reviewed Mode of arrival: Ambulatory Limitations: no limitations History of Present Illness HPI narrative: 54-year-old male history of hypertension, dyslipidemia, prior cholecystectomy with complaint of right lower quadrant pain that started last night. Patient states has increased gradually over time. Started sort of generalized abdomen but has not localized to the right lower quadrant. He denies any flank pain. No fevers. No nausea or vomiting. Has had some decreased appetite. Denies any changes to bowel movements no black or bloody stools. He states he intermittently has diarrhea and constipation at his baseline. Denies dysuria urgency or frequency. Patient states he was had a prior cholecystectomy sounds like it was performed here. He states that there may has been a remnant left behind from his report. Patient states he was also had a prior hernia repair and had had prior lithotripsy for kidney stone. No reported drug allergies. States he takes lisinopril with hydrochlorothiazide and simvastatin. Denies tobacco, rare alcohol, no recreational drugs. Patient states last solid intake was about 2:00. this afternoon states he has not had any liquids since about 3:00 p.m. Related Data Previous Rx's Medication Instructions Recorded lisinopril 20 mg tablet 20 mg PO BEDTIME #90 tabs 09/07/24 lisinopril 20 1 tab PO DAILY #90 tabs 09/07/24 mg-hydrochlorothiazide 12.5 mg tablet simvastatin 20 mg tablet See Rx Instructions .Route 09/07/24 .COMPLEX #90 tabs Allergies Allergy/AdvReac Type Severity Reaction Status Date / Time No Known Drug Allergies Allergy Verified 11/10/24 19:33 Review of Systems Review of Systems ROS Unobtainable: All systems reviewed & are unremarkable except as noted in HPI and below Patient History Medical History Adhesive capsulitis of shoulder Right foot pain Well adult exam Dysphagia Melanoma in situ Nevus Family history of [place] (myocardial infarction) Hyperlipidemia Hypertension Surgical History H/O hernia repair Family History Father Hypertension Social History marital status: household members: spouse and children occupational status: employed Smoking Status: Never smoker alcohol intake: current substance use type: does not use Smoking Status: Never smoker alcohol intake frequency: holidays/special occasions only Exam Narrative Exam Narrative: GENERAL: Alert and oriented x three, male in mild distress HEENT: Head normocephalic, atraumatic, EOMI, pupils reactive, face symmetric, moist mucous membranes NECK: Supple, full range of motion CARDIOVASCULAR: Regular rate and rhythm without murmurs, rubs or gallops. RESPIRATORY: Breath sounds equal bilaterally, no wheezes rales or rhonchi. ABDOMEN: Soft, positive for right lower quadrant tenderness. Normoactive bowel sounds all 4 quadrants. No guarding or rebound, rigidity, no mass, no rash or skin change noted : No CVA tenderness EXTREMITIES: Normal range of motion, no clubbing or edema. Neurovascularly intact NEUROLOGICAL: Cranial nerves II through XII grossly intact. Moving all extremities SKIN: Warm, dry, no petechiae, no rashes or lesions. Initial Vital Signs Initial Vital Signs: Vital Signs Temperature 97.9 F 11/10/24 16:39 Pulse Rate 63 11/10/24 16:39 Respiratory Rate 18 11/10/24 16:39 Blood Pressure 150/86 H 11/10/24 16:39 Pulse Oximetry 97 11/10/24 16:39 Oxygen Delivery Method Room Air 11/10/24 16:39 Course Orders Ordered: ED Orders 11/10/24 16:55 Complete Blood Count AUTO DIFF Stat Comprehensive Metabolic Panel Stat Lipase Stat 11/10/24 17:02 CT abdomen pelvis w con Stat Sodium Chloride (Normal Saline 0.9%) 1,000 mls @ 125 mls/hr IV CONT [facility] Last Admin: 11/10/24 20:11 Dose: 125 mls/hr Documented By: JESS Piperacillin Sod/Tazobactam (Sod 4.5 gm/ Sodium Chloride) 100 mls @ 25 mls/hr IV Q8H [facility] Last Admin: 11/10/24 20:06 Dose: Not Given Documented By: RLC Ondansetron HCl (Ondansetron 4 Mg/2 Ml Inj) 4 mg IV NOW PRN PRN Reason: Nausea And Vomiting Ondansetron HCl (Ondansetron 4 Mg Odt) 4 mg PO NOW PRN PRN Reason: Nausea And Vomiting Ondansetron HCl (Ondansetron 4 Mg/2 Ml Inj) 4 mg IV Q4HR PRN PRN Reason: Nausea And Vomiting Discontinued Medications Piperacillin Sod/Tazobactam (Sod 4.5 gm/ Sodium Chloride) 100 mls @ 200 mls/hr IV NOW ONE Stop: 11/10/24 19:10 Last Infusion: 11/10/24 20:05 Dose: Infused Documented By: Admin: 11/10/24 19:22 Dose: 200 mls/hr Documented By: JESS Ketorolac Tromethamine (Ketorolac 30 Mg/Ml Vial) 15 mg IV NOW ONE Stop: 11/10/24 19:51 Last Admin: 11/10/24 20:11 Dose: 15 mg Documented By: JESS Vital Signs Vital signs: Vital Signs - 8 hr 11/10/24 16:39 11/10/24 19:05 11/10/24 19:30 Temperature 97.9 F Pulse Rate 63 57 L 58 L Respiratory Rate 18 19 20 Blood Pressure 150/86 H Pulse Oximetry 97 99 98 Oxygen Delivery Method Room Air MDM - Abdominal Pain Lab Data 11/10/24 16:55 11/10/24 16:55 Labs: Lab Results 11/10/24 Range/Units 16:55 WBC 13.6 H (4.5-11.0) X10^3/uL RBC 5.02 (4.5-5.9) X10^6/uL Hgb 14.8 (13.5-17.5) g/dL Hct 43.1 (41-53) % MCV 85.7 (80-100) fL MCH 29.5 (26-34) PG MCHC 34.4 (30-36) % RDW 12.6 (11.6-14.8) % Plt Count 238 (150-400) X10^3/uL Neut % (Auto) 83.0 H (50-75) % Lymph % (Auto) 8.4 L (25-40) % [place] % (Auto) 7.8 (3-14) % Eos % (Auto) 0.5 L (2-4) % Baso % (Auto) 0.3 (0-2) % Neut # (Auto) 58270 H (1403-4100) /uL Lymph # (Auto) 1100 (4156-0837) /uL [place] # (Auto) 1100 H (0-900) /uL Eos # (Auto) 100 (0-450) /uL Baso # (Auto) 0 (0-100) /uL Sodium 138 (137-145) mmol/L Potassium 4.0 (3.4-5.1) mmol/L Chloride 102 (98-107) mmol/L Carbon Dioxide 27 (22-32) mmol/L BUN 13 (9-20) mg/dL Creatinine 0.79 (0.66-1.25) mg/dL Estimated GFR > 60 (>60) mL/min BUN/Creatinine Ratio 16.5 (6-22) Glucose 107 H (70-99) mg/dL Calcium 9.5 (8.4-10.2) mg/dL Total Bilirubin 0.9 (0.2-1.3) mg/dL AST 30 (17-59) IU/L ALT 32 (<50) IU/L Alkaline Phosphatase 87 (38-126) U/L Total Protein 8.0 (6.3-8.2) g/dL Albumin 4.8 (3.5-5.0) g/dL Globulin 3.2 (1.7-4.1) g/dL Albumin/Globulin Ratio 1.5 (1.0-2.8) Lipase 71 (23-300) [facility] Narrative Medical decision making narrative: Labs show white count of 13.6 hemoglobin of 14 platelets of 238, chemistries show no changes, glucose of 107 LFTs are normal lipase is 71. CT abdomen pelvis shows acute appendicitis without evidence of perforation or abscess, bilateral nonobstructing nephrolithiasis. No hydronephrosis. Patient received Zosyn, Toradol Spoke with general surgery, Dr. Elise at 1957. Accepts for admission askf or patient to be NPO, IV fluids overnight. Discharge Plan Departure Patient Disposition: Admitted as Observation Clinical Impression: Appendicitis Admit Date/Time: 11/10/24 19:57 Admit Provider: James Barahona
[2024-11-10 20:00] VITALS: PULSE 62; RESP 20; O2SAT 98
[2024-11-10] MEDS: KETOROLAC 30 MG/ML VIAL 15 MG IV (20:11)
[2024-11-10] MEDS: SODIUM CHLORIDE 0.9% 1,000 ML 125 ML IV (20:11)
[2024-11-10 20:20] VITALS: BP 120/74; PULSE 60; RESP 21; O2SAT 97
[2024-11-10 21:23] VITALS: BMI 30.9
[2024-11-11] VITALS (16 sets, daily range): BP systolic 94–125; BP diastolic 48–86; PULSE 57–76; RESP 13–19; TEMP 35.8–37; O2SAT 93–99
--- NOTE | 2024-11-11 | PATH_ITS ---
[facility] Accession Number: [id number] No. of containers..01 Tissue . 01 Material submitted: . appendix - APPENDIX . 01 Diagnosis: APPENDIX, APPENDECTOMY: Acute appendicitis and periappendicitis. MRV 11/16/2024 1332 Local . 01 Electronically signed: . Kellee Carmona MD, Pathologist NPI- [id number] . 01 Gross description: . Received in formalin with two identifiers and appendix, is a garcía vermiform appendix, 4.9 cm in length by 1.3 cm in diameter. The serosa is garcía to violaceous and diffusely ragged with adherent material consistent with exudate. The margin is inked blue. The lumen averages 0.1 cm thick with no fecal material grossly identified. The allred are garcía and average 0.4 cm thick with no perforation or lesions identified. [employer] Pumping [employer] Engineer sections to include the margin, entire bisected distal tip, and cross section are submitted in A1. ([id number]) /MRV 11/16/2024 0557 Local . 01 Pathologist provided ICD-10: K35.80 . 01 CPT . 412498 Specimen Comment: A courtesy copy of this report has been sent to [facility] Pathology Performed at: [address] [facility], [place], [place] [id number] MD Andreas Canela MD Phone: [phone]
[2024-11-11] MEDS: PIPERACILLIN/TAZO 4.5 GM in SODIUM CHLORIDE 0.9% 100 ML IV (04:04)
[2024-11-11] MEDS: SODIUM CHLORIDE 0.9% 1,000 ML 125 ML IV (04:13)
--- NOTE | 2024-11-11 07:43 | PM.HP.IH.1 ---
History of Present Illness History of Present Illness Date Patient Seen: 11/11/24 Chief complaint: stomach pains Narrative: 54-year-old male with 36 hour history of generalized abdominal pain which subsequently localized to the right lower quadrant. He was seen in the emergency department where and mild leukocytosis of 13 was noted, right lower quadrant tenderness was elicited and a CT scan demonstrated an inflamed appendix. He was admitted for definitive management. [facility] Medical History Adhesive capsulitis of shoulder Right foot pain Well adult exam Dysphagia Melanoma in situ Nevus Family history of [place] (myocardial infarction) Hyperlipidemia Hypertension Surgical History H/O hernia repair Family History Father Hypertension Social History marital status: household members: spouse and children occupational status: employed Smoking Status: Never smoker alcohol intake: current substance use type: does not use Meds Home Medications and Allergies Home Medications Medication Instructions Recorded Confirmed Type lisinopril 20 mg tablet 20 mg PO BEDTIME #90 tabs 09/07/24 11/10/24 Rx lisinopril 20 1 tab PO DAILY #90 tabs 09/07/24 11/10/24 Rx mg-hydrochlorothiazide 12.5 mg tablet simvastatin 20 mg tablet See Rx Instructions .Route 09/07/24 11/10/24 Rx .COMPLEX #90 tabs Allergies Allergy/AdvReac Type Severity Reaction Status Date / Time No Known Drug Allergies Allergy Verified 11/10/24 19:33 Review of Systems Review of Systems Narrative: Comprehensive review of systems negative to direct questioning with the exception of the previously mentioned chronic conditions. Exam Vital Signs (past 8 hours): - 11/11/24 02:00 Temperature 96.4 F L Pulse Rate 60 Respiratory Rate 19 Blood Pressure 125/74 Pulse Oximetry 99 Oxygen Flow Rate 0 Oxygen Delivery Method Room Air Oxygen Flow Rate 0 Narrative Exam Narrative: In general this is a well-nourished well-developed male, alert and oriented x3 in no acute distress. He feels better this morning than last night. Head is normocephalic and atraumatic. Neck is supple. Back is without CVA or spinous process tenderness. Lungs are clear to auscultation. Chest is symmetric nontender with normal inspiratory and expiratory excursion. Heart has a regular rate and rhythm with no murmur or gallop. Abdomen is nondistended, soft with McBurney's tenderness. Bowel sounds are present. There is no Rovsing sign. Neurological exam is nonfocal. Extremities manifests full range of motion. Objective Labs 11/10/24 16:55 11/10/24 16:55 Labs: Laboratory Results - last 24 hr 11/10/24 16:55 WBC 13.6 H RBC 5.02 Hgb 14.8 Hct 43.1 MCV 85.7 MCH 29.5 MCHC 34.4 RDW 12.6 Plt Count 238 Neut % (Auto) 83.0 H Lymph % (Auto) 8.4 L [place] % (Auto) 7.8 Eos % (Auto) 0.5 L Baso % (Auto) 0.3 Neut # (Auto) 29513 H Lymph # (Auto) 1100 [place] # (Auto) 1100 H Eos # (Auto) 100 Baso # (Auto) 0 Sodium 138 Potassium 4.0 Chloride 102 Carbon Dioxide 27 BUN 13 Creatinine 0.79 Estimated GFR > 60 BUN/Creatinine Ratio 16.5 Glucose 107 H Calcium 9.5 Total Bilirubin 0.9 AST 30 ALT 32 Alkaline Phosphatase 87 Total Protein 8.0 Albumin 4.8 Globulin 3.2 Albumin/Globulin Ratio 1.5 Lipase 71 Assessment & Plan Assessment and plan (1) Appendicitis: Qualifiers: Appendicitis type: acute appendicitis Acute appendicitis type: with localized peritonitis Appendicitis gangrene presence: without gangrene Appendicitis perforation presence: without perforation Appendicitis abscess presence: without abscess Qualified Code(s): K35.30 - Acute appendicitis with localized peritonitis, without perforation or gangrene Status: Acute Plan I have recommended a laparoscopic attempt at appendectomy. Alternatives, risks and benefits were discussed in detail. Questions were answered to the patient's satisfaction. He desires to proceed as I have outlined. Time-Based Coding :: [TOTAL MINUTES] spent with patient and on the chart (including review of chart, obtaining history, exam, reviewing outside data, placing orders, documenting exam and treatment plan, and counseling patient) on [DATE]. PROFEE Manufacturing Machine Operator Document charge(s): Yes
[2024-11-11] MEDS: LACTATED RINGERS 1,000 ML 42 ML IV (09:14)
[2024-11-11] MEDS: CEFAZOLIN 2 GM/100 ML PREMIX 100 ML IV (09:22)
[2024-11-11] MEDS: BUPIVACAINE 0.5% (PF) 30 ML VIAL INJ (09:33)
[2024-11-11] MEDS: ACETAMINOPHEN IV 1,000 MG/100 ML VIAL 400 MG IV (09:42)
--- NOTE | 2024-11-11 09:46 | SUR.OPER ---
Supine on padded OR bed, head on pillow, right arm secured on padded arm boards at <90 degrees abduction, left arm tucked and padded at side, legs uncrossed, safety belt at thigh, tape over blanket over lower legs.
--- NOTE | 2024-11-11 10:26 | P.OP_ITS ---
Operative Date/Time/Diagnoses Date of procedure: 11/11/24 Time of procedure: 09:25 Pre-op diagnosis: Acute appendicitis Post-op diagnosis: same Procedure & Clinicians Procedure: Laparoscopic appendectomy Same procedure as scheduled: Yes Indications: Acute appendicitis Surgeon: James Barahona Click Yes if Unassisted: Yes Anesthesia Type: General Operative Notes Findings: Acute appendicitis Closure Type: primary Specimen(s): other (Vermiform appendix) Estimated Blood Loss (mL): 5 Blood products transfused: none Procedure in detail: After obtaining informed consent properly identifying the patient the patient was transported to the operating room was placed on table in supine position. general endotracheal anesthesia was induced and the abdomen was prepped and draped in the usual sterile manner. Time-out protocol was observed. A vertical midline incision of 3 cm length was made with its caudad apex at the umbilical verge. This was carried sharply down onto the linea [place]ba retraction sutures of 0 Vicryl were placed on either side of midline. The peritoneotomy was made with a 15 blade under direct vision between the traction sutures and a 12 mm Pate cannula was installed. It was secured by inflating the balloon at the cannulas tip and pneumoperitoneum was instilled. A 5 mm 30 degree angled laparoscope was passed and the posterior surface of the lower abdominal wall was visualized. Under direct laparoscopic vision 2 5 mm ports were placed, the 1st in the midline 2/[address] from the umbilicus to the pubis, and the 2nd midway between the 1st 5 mm port in the umbilicus, 2 fingerbreadths left of midline. Attention was directed to the cecum. The lateral attachments of the cecum and appendix were taken sharply with the LigaSure and the mesoappendix was sharply dissected with the LigaSure down to the confluence of the appendiceal base and cecal wall. The appendiceal base was thickened to a little over a cm and a cuff of cecal wall was included in the specimen. The 5 mm 30 degree angled scope was withdrawn from the Pate and was passed through the left lower quadrant port an echelon stapler was passed through the Pate was applied across the cecal wall just proximal to the confluence of the appendiceal base a nd cecal wall. The device was closed and fired. The echelon was withdrawn. An Endo-Catch specimen extractor was passed through the Pate and the specimen was bagged under direct laparoscopic vision. The Pate balloon was deflated and the Pate, Endo-Catch and specimen were withdrawn from the supraumbilical port site as a unit. The specimen was passed from the field and the Pate and 5 mm 30 degree angled scope were restored to their original positions. The operative site was copiously irrigated and all irrigant was evacuated. Hemostasis was noted to be perfect. The cul-de-sac was next inspected and was irrigated. All irrigant was evacuated. There was no fluid resident in the pelvis. All laparoscopic equipment was withdrawn under direct laparoscopic vision. Pneumoperitoneum was evacuated and ports were withdrawn. An umbilical hernia with sharply dissected at this time with the electrocautery. It was of 8 mm size and was closed in continuity with the supraumbilical fascial defect with a running 0 Prolene stitch. Field blocks of 0.5% Marcaine were instilled into the wounds which were then closed with a series of inverted deep dermal 3-0 Vicryl sutures and Dermabond. The patient tolerated the procedure well and was transported to the recovery room extubated and awake. Complications: none Post-operative Condition: stable Disposition: PACU Plan for aftercare: Discharge to home when pain control adequate and tolerant of regular diet.
--- NOTE | 2024-11-11 14:53 | CM.DANOTE ---
Patient is a 54 yo male who was admitted OBS Status on 11/10/24 for Acute Appendicitis. Pt has [employer] for insurance and his PCP is Dr. Kavin Benítez. EMR was reviewed. Per Surgeon, pt with inflamed appendix at admit after multiple days of abdominal pain and admitted for appendicitis and plan of Lap Appe today. Per RN, pt off floor for surgery at 830 and returned around 1400 and remains on oxygen at this time and likely no discharge until tomorrow Sun pending progress. 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 Pt does not use DME for ambulation and no hx of HH or SNF. Pt works parttime right now as his spouse is a Pharmacist and family can provide assist if needed at d/c. Pt does not anticipate any needs at d/c and preference is home when stable. SW to notify TCM group at discharge for f/u appointment after d/c as pt's PCP is Dr. Benítez. Plan: SW to follow for pt progress with advancing diet and weaning to room air for plan of home with family assist when medically stable and any further identified discharge planning needs. ISAMAR Obrien Discharge Planning/Care Management CM Discharge Assessment Start: 11/10/24 20:05 Freq: Status: Active Protocol: Document 11/11/24 14:50 BF (Rec: 11/11/24 14:52 BF [id number]) Discharge Planning Assessment Assigned Setter Out ISAMAR Garcia DPOA/Assigned Designee Name spouse Lizet Contact Information [phone] Advance Directives? No Advance Directives on File No History Provided By Patient,Medical Record Has Patient been admitted in last 30 No days? Prior Living Arrangements House Household Members spouse,children Comment Lives with spouse and young Dtr Type of transporation used prior to Drives own vehicle admit Independent with ADL's Yes Is patient alert and oriented? 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 Patient indp and active at baseline Discharge Plan Home Transportation Arrangement family Referrals Initiated None needed Whiteboard Updated in Patient Room with Yes name and ext. # of Setter Out Review Status In Process Please Provide Date Initial DC 11/11/24 Assessment Was Performed Next Review Type Continued Stay Review
[2024-11-12 05:20] LABS: Add Manual Diff / Slide Review NO; Basophils Absolute Auto 0 /uL (0-100); Basophils Percent Auto 0.2 % (0-2); Eosinophils Absolute Auto 0 /uL (0-450); Eosinophils Percent Auto 0.1 % (2-4); Hematocrit 37.9 % (41-53); Hemoglobin 13.1 g/dL (13.5-17.5); Lymphocytes Absolute Auto 1400 /uL (1100-4500); Lymphocytes Percent Auto 10.1 % (25-40); Mean Corpuscular HGB Conc 34.7 % (30-36); Mean Corpuscular Hemoglobin 29.7 PG (26-34); Mean Corpuscular Volume 85.8 fL (80-100); Monocytes Absolute Auto 1100 /uL (0-900); Monocytes Percent Auto 8.2 % (3-14); Neutrophils Absolute Auto 11100 /uL (1500-7000); Neutrophils Percent Auto 81.4 % (50-75); Platelet Count 210 X10^3/uL (150-400); Red Blood Cell Count 4.42 X10^6/uL (4.5-5.9); Red Cell Distribution Width 12.5 % (11.6-14.8); White Blood Cell Count 13.7 X10^3/uL (4.5-11.0)
[2024-11-12 05:32] LABS: Blood Urea Nitrogen 17 mg/dL (9-20); Calcium 9.3 mg/dL (8.4-10.2); Carbon Dioxide 26 mmol/L (22-32); Chloride 103 mmol/L (98-107); Estimated Glomerular Filt Rate > 60 mL/min (>60); Glucose 142 mg/dL (70-99); HEMOLYSIS < 15 (0-50); Potassium 4.4 mmol/L (3.4-5.1); Sodium 136 mmol/L (137-145)
[2024-11-12 08:00] VITALS: BP 129/70; PULSE 68; RESP 14; TEMP 36.5; O2SAT 98
--- NOTE | 2024-11-12 09:06 | PM.PN.IH.1 ---
Subjective Subjective Interval history: Feels well. Tolerant of regular diet. Pain is adequately controlled with Advil. Exam Vital Signs (past 8 hours): - 11/12/24 08:00 Temperature 97.7 F Pulse Rate 68 Respiratory Rate 14 Blood Pressure 129/70 Pulse Oximetry 98 Oxygen Flow Rate 0 Oxygen Delivery Method Room Air Oxygen Flow Rate 0 Narrative Exam Narrative: Lungs are clear to auscultation. Heart has a regular rate and rhythm. Abdomen is generally soft with appropriate incisional tenderness. Preoperative tenderness is resolved. Bowel sounds are present. Objective Labs 11/12/24 05:00 11/12/24 05:00 Labs: Laboratory Results - last 24 hr 11/12/24 05:00 WBC 13.7 H RBC 4.42 L Hgb 13.1 L Hct 37.9 L MCV 85.8 MCH 29.7 MCHC 34.7 RDW 12.5 Plt Count 210 Neut % (Auto) 81.4 H Lymph % (Auto) 10.1 L [place] % (Auto) 8.2 Eos % (Auto) 0.1 L Baso % (Auto) 0.2 Neut # (Auto) 06342 H Lymph # (Auto) 1400 [place] # (Auto) 1100 H Eos # (Auto) 0 Baso # (Auto) 0 Sodium 136 L Potassium 4.4 Chloride 103 Carbon Dioxide 26 BUN 17 Creatinine 0.85 Estimated GFR > 60 BUN/Creatinine Ratio 20.0 Glucose 142 H Calcium 9.3 PFSH Medical History Adhesive capsulitis of shoulder Right foot pain Well adult exam Dysphagia Melanoma in situ Nevus Family history of [place] (myocardial infarction) Hyperlipidemia Hypertension Surgical History H/O hernia repair Family History Father Hypertension Social History marital status: household members: spouse and children occupational status: employed Smoking Status: Never smoker alcohol intake: current substance use type: does not use Assessment & Plan Assessment and plan (1) Appendicitis: Qualifiers: Acute appendicitis type: with localized peritonitis Appendicitis abscess presence: without abscess Appendicitis gangrene presence: without gangrene Appendicitis perforation presence: without perforation Appendicitis type: acute appendicitis Qualified Code(s): K35.30 - Acute appendicitis with localized peritonitis, without perforation or gangrene Status: Acute Plan Discharged home. Patient declines offer of [place] medication for postoperative analgesia. His white count remains mildly elevated and it is prudent to send him home on a 7 day course of Augmentin. Follow up with me 2 weeks. Time-Based Coding :: [TOTAL MINUTES] spent with patient and on the chart (including review of chart, obtaining history, exam, reviewing outside data, placing orders, documenting exam and treatment plan, and counseling patient) on [DATE]. PROFEE Library Manager Document charge(s): No
--- NOTE | 2024-11-12 10:16 | PC.NURSE ---
Day shift: Discharge instructions gone over with patient. All questions answered, patient stated understanding. PIV removed prior to discharge. All belongings with patient. PCT Irene escorted patient to exit.
--- NOTE | 2024-11-12 10:26 | CM.DPNOTE ---
DCP Note QUANTITATIVE MANAGER reviewed EMR per chart review pt cleared to dc home today. pt left prior to being seen by this QUANTITATIVE MANAGER. QUANTITATIVE MANAGER notified TCM P: home with spouse support, no CM needs.will continue to follow as needed ISAMAR Godinez
== END 2024-11-12 10:17 | disposition home or self-care (01) ==
LOC: ED 19:57 → AC 19:59
PROVIDERS: Emergency Medicine; Admitting Provider Surgery; Emergency Provider Emergency Medicine; PCP Family Medicine; Visit Provider Surgery
PROC: 0DTJ4ZZ Resection of Appendix, Percutaneous Endoscopic Approach (ICD-10-PCS; CPT 44970; principal; 2024-11-11 09:00)
DX: R10.31 Right lower quadrant pain (principal); I10 Essential (primary) hypertension; E78.5 Hyperlipidemia, unspecified; Z90.49 Acquired absence of other specified parts of digestive tract; N20.0 Calculus of kidney; K35.80 Unspecified acute appendicitis
CPT/HCPCS: 44970; 36415; 74177; 80048; 80053; 83690; 85025; 96361; 96365; 96375; 99222; 99284; G0378; J0131; J0330; J0690; J1100; J1885; J2405; J2543; J2704; J3010; J3490; Q9967

== ENCOUNTER → 2025-01-03 08:33 | Outpatient (CLI) | payer BC, SELFPAY ==
[2025-01-03 09:57] LABS: Hemoglobin A1C% w Est Avg Glu 5.1 % (4.0-6.0)
[2025-01-03 10:02] LABS: HEMOLYSIS < 15 (0-50)
[2025-01-03 10:23] LABS: Alanine Aminotransferase 32 IU/L (<50); Albumin 4.7 g/dL (3.5-5.0); Albumin Globulin Ratio 1.8 (1.0-2.8); Alkaline Phosphatase 79 U/L (38-126); Blood Urea Nitrogen 15 mg/dL (9-20); Calcium 9.5 mg/dL (8.4-10.2); Carbon Dioxide 24 mmol/L (22-32); Chloride 103 mmol/L (98-107); Cholesterol 178 mg/dL (140-199); Estimated Glomerular Filt Rate > 60 mL/min (>60); Globulin 2.6 g/dL (1.7-4.1); Glucose 96 mg/dL (70-99); HDL Cholesterol 38 mg/dL (40-60); Potassium 4.6 mmol/L (3.4-5.1); Sodium 137 mmol/L (137-145); Total Protein 7.3 g/dL (6.3-8.2); Triglycerides 195 mg/dL (35-150)
[2025-01-03 10:33] LABS: TSH w/ Reflex to FT4 1.75 uIU/mL (0.47-4.68)
[2025-01-03 10:35] LABS: Prostate Specific Antigen 0.840 ng/mL (0.10-4.00)
== END ==
PROVIDERS: PCP Family Medicine; Referring Provider Family Medicine; Visit Provider Family Medicine
DX: Z12.5 Encounter for screening for malignant neoplasm of prostate (principal); Z13.1 Encounter for screening for diabetes mellitus; E78.2 Mixed hyperlipidemia; I10 Essential (primary) hypertension
CPT/HCPCS: 36415; 80053; 80061; 83036; 84153; 84443